=== PATIENT | female | born 1980 | race Caucasian/White ===

== ENCOUNTER 2024-05-13 09:20 | Outpatient (REF) | payer BC, SELFPAY ==
--- NOTE | 2024-05-13 09:00 | PAPFT_PTH ---
PATIENT: Ananya Tanner LOC: [facility] U#:[id number] AGE/SX: 44/F ROOM: RE05/13/[address]: Jovana Andres MD : [id number] BED: DIS: 05/13/2024 SPEC #: [id number] RECD: 05/13/24 12:06 STATUS: BETH RERhoda #: [id number] ELENA: 05/13/24 09:[address]: Jovana Andres DEPT: [facility] Cytology RECD BY: Lisa Vital ENTERED: 05/13/24 12:06 SP TYPE: PAPFT OTHR DR: Unknown,Unknown Tissues: 1 - CX/ENDOCX FOR PAP SMEARS Procedures: PAP THIN PREP/[facility] Screening HPV DNA PROBE Comments: [id number] (HPV 16 & 18/45)
== END 2024-05-13 09:21 | disposition home or self-care (01) ==
LOC: LBN 09:20
PROVIDERS: Visit Provider Obstetrics & Gynecology
DX: Z12.31 Encounter for screening mammogram for malignant neoplasm of breast (principal); Z01.419 Encounter for gynecological examination (general) (routine) without abnormal findings; N95.1 Menopausal and female climacteric states; N92.0 Excessive and frequent menstruation with regular cycle
CPT/HCPCS: 88142; 87624

== ENCOUNTER 2024-06-13 02:23 | Outpatient (CLI) | payer BC, SELFPAY ==
--- NOTE | 2024-06-13 06:30 | DI.MAMMO_ITS ---
Exam(s) MAMMO SCREENING EXAM: MAMMO SCREENING CLINICAL HISTORY: screening,z12.31 TECHNIQUE: Bilateral full field digital CC and MLO mammographic images were obtained with 3D tomosyn thesis and utilizing computer aided detection (CAD). COMPARISON: Available for comparison. FINDINGS: Masses/Architectural Distortion: There is a 1.3 cm nodule seen in the outer right breast on the crani ocaudad view. This has shown interval increase in size compared to the prior examination. It was vi sualized on the exam from 07/23/2021 at which time it measures 7 mm. This may correspond to a nodule seen in the axillary tail region on the MLO view. There are no areas of architectural distortion. Microcalcifications: No suspicious pleomorphic-type are seen. Skin Thickening/Nipple Retraction: None. IMPRESSION: 1. 1.3 cm nodule in the outer right breast on the craniocaudad view. 2. Spot compression views are requested for further evaluation. Limited right breast ultrasound may be indicated at that time. BI-RADS Category 0 - Incomplete: Need additional imaging evaluation Breast Density - Category B - Scattered areas of fibroglandular density Breast density category C or D implies that the patient has dense breast tissue. Dense breast tissue is very common and is not abnormal but dense breast tissue can make it harder to find cancer on a ma mmogram. Also, dense breast tissue may increase their breast cancer risk. This information about the result of the mammogram report was provided to the patient to raise their awareness. Use this report when you speak with the patient about their risks for breast cancer, which includes their family hist ory. At that time, you may recommend for more screening tests (Ultrasound or MRI) as they might be us eful based on their risk. A negative radiographic report should not delay biopsy if a dominant or clinically suspicious mass is present. Up to ten percent of cancers are not identified on mammography. A negative report may reinforce clinical impression. Adenosis and dense breasts may obscure an underlying neoplasm. False positive reports average 6 to 10%. Patient will receive a letter notifying them of these results.
== END 2024-06-13 02:43 ==
PROVIDERS: Visit Provider Obstetrics & Gynecology
DX: Z12.31 Encounter for screening mammogram for malignant neoplasm of breast (principal); R92.8 Other abnormal and inconclusive findings on diagnostic imaging of breast
CPT/HCPCS: 77063; 77067

== ENCOUNTER 2024-06-17 09:56 | Outpatient (CLI) | payer BC, SELFPAY ==
--- NOTE | 2024-06-17 | DI.US_ITS ---
Exam(s) US BREAST RT LIMITED EXAM: US BREAST RT LIMITED of CLINICAL HISTORY: 1.3 cm nodule outer right breast on cc view. TECHNIQUE: Ultrasound right breast performed using standard protocol. Findings: Please see combined mammogram ultrasound report of the same day. BI-RADS Category 3 - 6 month - Probably Benign Finding: Recommend follow-up imaging in 6 months DATA REPOSITORY:
--- NOTE | 2024-06-17 09:40 | DI.MAMMO_ITS ---
Exam(s) MAMMO SCREEN CALL BACK UNI EXAM: MAMMO SCREEN CALL BACK UNI CLINICAL HISTORY: 1.3 cm nodule outer rt breast on CC view. TECHNIQUE: Craniocaudal and mediolateral oblique spot compression digital Mammography views of the r ightbreast with Tomosynthesis and right breast ultrasound. COMPARISON: Exam from 2019 through 2021 and recent exam 13 June 2024 FINDINGS: Mammography/Tomosynthesis: Masses: Area of nodularity in the posterior upper outer quadrant the right breast appears slightly le ss prominent. There is a central fatty hilum, consistent with a lymph node. Architectural Distortion: None seen. Microcalcifictions: No suspicious pleomorphic-type are seen. Skin Thickening/Nipple Retraction: None. Right breast US: Echotexture: Normal appearance of the glandular tissue. Shadowing: No suspicious foci. Cyst: None. Solid lesions: None seen. Ductal dilation: None. IMPRESSION: 1. No evidence of malignancy is noted. 2. Nodule in the posterior upper outer quadrant of the right breast likely right represents an intram ammary lymph node. Six month follow-up right mammogram recommended. 3. The findings were discussed with the patient on the date of the examination. BI-RADS Category 3 - 6 month - Probably Benign Finding: Recommend follow-up mammography in 6 months Breast Density - Category B - Scattered areas of fibroglandular density A negative radiographic report should not delay biopsy if a dominant or clinically suspicious mass is present. Up to ten percent of cancers are not identified on mammography. A negative report may reinforce clinical impression. Adenosis and dense breasts may obscure an underlying neoplasm. False positive reports average 6 to 10%. Patient will receive a letter notifying them of these results.
--- OUTSIDE RECORDS SUMMARY | 2024-06-17 09:59 | XMS_ITS | Encounter Summary ---
Author Organization [facility] [place] [address] Care Team Providers Care Ccu Nurse Name Role Phone Unknown Primary Care Provider Unavailabl e Encounter Details Date Type Department Care Team (Late st Contact Info) Description 06/14/2022 2:10 PM EDT Ancillary Procedure Radiology Library at [facility] [place] [address] Mani Newell MD [facility] [place] [address] Social History Tobacco Use Types Packs/Day Years Used Date Smoking Tobacco: Never Assessed Sex and Gender Information Value Date Recorded Sex Assigned at Not on file Gender Identity Not on file Sexual Orientation Not on file documented as of this encounter Plan of Treatment Not on file documented as of this encounter Procedures Procedure Name Priority Date/Time Associated Diagnosis Comments FILM LIBRARY STORAGE ONLY CT CHEST Routine 06/14/2022 2:07 PM EDT documented in this encounter Results * Film Library- Storage Only CT Chest (06/14/2022 2:07 PM EDT) Narrative [facility] - 06/14/2022 2:07 PM EDT This exam is auto-finalizing. It's purpose is for storage only. Mani Newell MD IMG FILM LIBRARY ORD ERABLES [place], [place] documented in this encounter Visit Diagnoses Not on filedocumented in this encounter Care Teams Ccu Nurse Relationship Specialty Start Date End Date Unknown None PCP - General 08/10/10 12/08/22 documented as of this encounter
--- OUTSIDE RECORDS SUMMARY | 2024-06-17 09:59 | XMS_ITS | Encounter Summary ---
Author Organization [facility] [place] [address] Care Team Providers Care Ground Water Contractor Name Role Phone Page, Brianna Rodriguez APRN Primary Care Provider [phone] Encounter Details Date Type Department Care Team (Latest Contact Info) Description 12/09/2022 10:00 AM EDT Tech [place] [address] Ananya Ty, [place] Acute deep vein thrombosis (DVT) of left lower extremity, unspecified vein; Anticoagulated by anticoagulation treatment; Other acute pulmonary embolism, unspecified whether acute cor pulmonale present Social History Tobacco Use Types Packs/Day Years Used Date Smoking Tobacco: Never Smokeless Tobacco: Never Sex and Gender Information Value Date Recorded Sex Assigned at Not on file Gender Identity Not on file Sexual Orientation Not on file documented as of this encounter Plan of Treatment Not on file documented as of this encounter Procedures Procedure Name Priority Date/Time Associated Diagnosis Comments DUPLEX FOR DVT, LEG, UNILAT Routine 12/09/2022 9:55 AM EDT Acute deep vein thrombosis (DVT) of left lower extremity, unspecified vein Anticoagulated by anticoagulation treatment Other acute pulmonary embolism, unspecified whether acute cor pulmonale present documented in this encounter Results * Duplex for DVT, Leg, Unilat (12/09/2022 9:55 AM EDT) VB Text Report Department: Vascular Surgery Lab Patient: [id number] (ANANYA [facility]NER) CPT: 83014 Referring Physician: ANA BARNES ?? Indications: ?? F/U LLE DVT at OSH with PE. ??? residual LLE DVT. ??Patient being anticoagulated. Findings: LEFT: Patent common femoral vein and popliteal vein with spontaneous, respirophasic Doppler waveforms that respond normally to augmentation maneuvers. The common femoral vein, saphenofemoral junction, femoral vein through the thigh and popliteal vein are fully compressible. Patent posterior tibial and peroneal veins with no evidence of thrombus. Interpretation: LEFT: ??No evidence of lower extremity deep venous thrombosis. Comparison: ??No previous study in our vascular lab database for comparison. Electronically Signed by: KYLIE ROYAL on 2022-12-09 10:43:01 AM [facility] VB Text Report End of Report [facility] 12/09/2022 9:55 AM EDT Ana Barnes MD VASCULAR ORDERABLE S [facility] documented in this encounter Visit Diagnoses Diagnosis Acute deep vein thrombosis (DVT) of left lower extremity, unspecified vein Anticoagulated by anticoagulation treatment Encounter for long-term (current) use of anticoagulants Other acute pulmonary embolism, unspecified whether acute cor pulmonale present documented in this encounter Care Teams Ground Water Contractor Relationship Specialty Start Date End Date Brianna Ferguson, [employer] PROFESSIONAL [address] [place] [address] PCP - General Family Medicine 12/09/22 documented as of this encounter
--- OUTSIDE RECORDS SUMMARY | 2024-06-17 09:59 | XMS_ITS | Encounter Summary ---
Author [facility] [place] [address] Care Team Providers Care Tool [employer] Die Repair Name Role Phone Brianna Ferguson APRN Primary Care Provider [phone] Encounter Details Date Type Department Care Team (Latest Contact Info) Description 12/09/2022 Travel Social History Tobacco Use Types Packs/Day Years Used Date Smoking Tobacco: Never Smokeless Tobacco: Never Sex and Gender Information Value Date Recorded Sex Assigned at Not on file Gender Identity Not on file Sexual Orientation Not on file documented as of this encounter Plan of Treatment Not on file documented as of this encounter Visit Diagnoses Not on filedocumented in this encounter Care Teams [employer] Repair Relationship Specialty Start Date End Date Brianna Ferguson APRN [address] [place] [address] PCP - General Family Medicine 12/09/22 documented as of this encounter
--- OUTSIDE RECORDS SUMMARY | 2024-06-17 09:59 | XMS_ITS | Encounter Summary ---
Author Organization [facility] [place] [address] Care Team Providers Care Hris Developer Name Role Phone Unknown Primary Care Provider Unavailabl e Encounter Details Date Type Department Care Team (Latest Contact Info) Description 11/18/2022 10:55 AM EST - 11/18/2022 11:59 PM EST Hospital Encounter Hematology and Oncology at [facility] [place] [address] Acute deep vein thrombosis (DVT) of left lower extremity, unspecified vein; Anticoagulated by anticoagulation treatment; Other acute pulmonary embolism, unspecified whether acute cor pulmonale present Discharge Disposition: Home Social History Tobacco Use Types Packs/Day Years Used Date Smoking Tobacco: Never Smokeless Tobacco: Never Sex and Gender Information Value Date Recorded Sex Assigned at Not on file Gender Identity Not on file Sexual Orientation Not on file documented as of this encounter Medications at Time of Discharge Medication Sig Dispensed Refills Start Date End Date apixaban (Eliquis) 5 mg Tablet Take 5 mg by mouth 2 times daily. sertraline (Zoloft) 25 mg Tablet Take 25 mg by mouth daily. documented as of this encounter Plan of Treatment Not on file documented as of this encounter Procedures Procedure Name Priority Date/Time Associated Diagnosis Comments TT Routine 11/18/2022 11:09 AM EST Acute deep vein thrombosis (DVT) of left lower extremity, unspecified vein Anticoagulated by anticoagulation treatment Other acute pulmonary embolism, unspecified whether acute cor pulmonale present PTT Routine 11/18/2022 11:09 AM EST Acute deep vein thrombosis (DVT) of left lower extremity, unspecified vein Anticoagulated by anticoagulation treatment Other acute pulmonary embolism, unspecified whether acute cor pulmonale present PT Routine 11/18/2022 11:09 AM EST Acute deep vein thrombosis (DVT) of left lower extremity, unspecified vein Anticoagulated by anticoagulation treatment Other acute pulmonary embolism, unspecified whether acute cor pulmonale present PLAT Routine 11/18/2022 11:09 AM EST Acute deep vein thrombosis (DVT) of left lower extremity, unspecified vein Anticoagulated by anticoagulation treatment Other acute pulmonary embolism, unspecified whether acute cor pulmonale present FIBR Routine 11/18/2022 11:09 AM EST Acute deep vein thrombosis (DVT) of left lower extremity, unspecified vein Anticoagulated by anticoagulation treatment Other acute pulmonary embolism, unspecified whether acute cor pulmonale present HC HOMOCYSTEINE Routine 11/18/2022 11:09 AM EST Acute deep vein thrombosis (DVT) of left lower extremity, unspecified vein Anticoagulated by anticoagulation treatment Other acute pulmonary embolism, unspecified whether acute cor pulmonale present FACTOR 5 MUTATION Routine 11/18/2022 11: 09 AM EST PROTEIN S ACTIVITY Routine 11/18/2022 11 :09 AM EST HC D-DIMER, QUANTITATIVE Routine 11/18/2022 11:09 AM EST Acute deep vein thrombosis (DVT) of left lower extremity, unspecified vein Anticoagulated by anticoagulation treatment Other acute pulmonary embolism, unspecified whether acute cor pulmonale present APC RESISTANCE Routine 11/18/2022 11:09 AM EST PROTHROMBIN GENE MUTATION Routine 11/18/2022 11:09 AM EST BETA-2 GLYCOPROTEIN ANTIBODIES Routine 11/18/2022 11:09 AM EST Acute deep vein thrombosis (DVT) of left lower extremity, unspecified vein Anticoagulated by anticoagulation treatment Other acute pulmonary embolism, unspecified whether acute cor pulmonale present PROTEIN C ACTIVITY Routine 11/18/2022 11 :09 AM EST CARDIOLIPIN ANTIBODY SCREEN Routine 11/18/2022 11:09 AM EST Acute deep vein thrombosis (DVT) of left lower extremity, unspecified vein Anticoagulated by anticoagulation treatment Other acute pulmonary embolism, unspecified whether acute cor pulmonale present ANTITHROMBIN Routine 11/18/2022 11:09 AM EST HOMOCYSTEINE TOTAL, PLASMA Routine 11/18/2022 11:09 AM EST Acute deep vein thrombosis (DVT) of left lower extremity, unspecified vein Anticoagulated by anticoagulation treatment Other acute pulmonary embolism, unspecified whether acute cor pulmonale present THROMBOSIS SCREEN REPORT Routine 11/18/2022 10:57 AM EST documented in this encounter Results * Factor 5 Mut (11/18/2022 11:09 AM EST) [facility] Signature Factor V Leiden Heterozygous [facility] Factor V Leiden Interp RESULT: HETEROZYGOUS POSITIVE for one copy of the c.1601G>A variant (Factor V Leiden) INTERPRETATION: The protein generated from this Factor V variant shows normal procoagulant activity, but has increased resistance to inactivation by activated protein C. The estimated relative risk of developing venous thromboembolic disease is estimated to be 5- to 10-fold for heterozygous carriers of this allele, but risk for thrombosis increases with age and penetrance of a thrombosis phenotype depends on the presence or absence of other concomitant risk factors. Clinical correlation is recommended. METHOD: The Coagulation Factor V gene (F5) variant, c.1601G>A (NM_000130.4) [p.Kui993Gix (NP_000121.2) ([id number]; commonly Factor V Leiden or P7421B)], is interrogated using a TaqMan allelic discrimination assay. Genomic DNA was isolated from the submitted peripheral blood specimen. Real-time PCR was performed to amplify a short region spanning the variant site, and genotyping was performed by allelic discrimination using a mixture of fluorescently labeled probes, one of which is specific for the reference sequence, the other specific for the variant gene. This test was developed and its performance characteristics determined by the [facility] [employer] [facility] at [facility]. It has not been cleared or approved by the FDA. The laboratory is regulated under CLIA as qualified to perform high-complexity testing. This test is used for clinical purposes. It should not be regarded as investigational or for research. [facility] Comment: [VERIFIED DATE]11.22.22 Verified By:Bon Ph.D., Anni [facility]ATE Clinical Neon Glass Bender/Magnet Placer (Electronic Signature) Blood Venous Draw / Unknown 11/18/2022 11:09 AM EST 11/21/2022 8:04 AM EST Narrative Resulting Agency Comment Spec In Lab Ana Barnes MD MOLECULAR ORDERABL ES [facility] [place] [address] * Prothrombin gene mutation (11/18/2022 11:09 AM EST) Prothrombin Mutation Heterozygous [facility] Prothrombin Mutation Interp RESULT: HETEROZYGOUS POSITIVE for the Factor II 60635D>A variant in the 3' untranslated region of the prothrombin gene INTERPRETATION: The Factor II 08159V>A variant ([id number]:g.253 13G>A, [id number]) is associated with elevated prothrombin levels. Heterozygous positive results have been linked with a 2- to 5-fold increased risk for venous thrombosis and increased risk for obstetric complications. 09405E>A heterozygosity has a most a modest effect on recurrence risk after initial treatment of a first VTE, and many studies have shown no increased risk for recurrent venous thromboembolism. The presence or absence of other concomitant risk factors for thrombosis may modify the overall relative risk. Clinical correlation is recommended. METHODS: The region of interest in the Prothrombin gene (04166R>A) is interrogated using a TaqMan allelic discrimination assay. Genomic DNA was isolated from the submitted peripheral blood specimen. Real-time PCR was performed to amplify a short region spanning the variant site, and genotyping was performed by allelic discrimination using a mixture of fluorescently labeled probes, one of which is specific for the reference sequence, the other specific for the variant allele. This test was developed and its performance characteristics determined by the [facility] at [facility]. It has not been cleared or approved by the FDA. The laboratory is regulated under CLIA as qualified to perform high-complexity testing. This test is used for clinical purposes. It should not be regarded as investigational or for research. [facility] Comment: [VERIFIED DATE]11.22.22 Verified By:Bon Ph.D., [facility], [facility] Clinical Neon Glass Bender/Magnet Placer (Electronic Signature) Blood Venous Draw / Unknown 11/18/2022 11:09 AM EST 11/21/2022 8:04 AM EST Narrative Resulting Agency Comment Spec In Lab Ana Barnes MD MOLECULAR ORDERABL ES Performing Organization Address City/[facility]/ZIP Co de Phone Number [facility] [place] [address] * Protein S Activity (11/18/2022 11:09 AM EST) Protein S Act 104 >=64 % activity [facility] Blood Venous Draw / Unknown 11/18/2022 11:09 AM EST 11/18/2022 11:18 AM EST Narrative Resulting Agency Comment Spec In Lab Ana Barnes MD HEMATOLOGY ORDERAB LES Performing Organization Address City/[facility] Co de Phone Number [facility] [place] [address] * Protein C activity (11/18/2022 11:09 AM EST) Protein C Activity 105 >=70 % [facility] Blood Venous Draw / Unknown 11/18/2022 11:09 AM EST 11/18/2022 11:18 AM EST Narrative Resulting Agency Comment Spec In Lab Ana Barnes MD HEMATOLOGY ORDERAB LES Performing Organization Address City/[facility] Co de Phone Number [facility] [place] [address] * Antithrombin (11/18/2022 11:09 AM EST) Antithrombin III Assay 103 >=83 % [facility] Blood Venous Draw / Unknown 11/18/2022 11:09 AM EST 11/18/2022 11:18 AM EST Narrative Resulting Agency Comment Spec In Lab Ana Barnes MD HEMATOLOGY ORDERAB LES Performing Organization Address City/[facility]/ZIP Co de Phone Number [facility] [place] [address] * (ABNORMAL) APC resistance (aka Factor V Leiden Screen) (11/18/2022 11:09 AM EST) Activated Protein C Resistance 1.72(L) >=2.45 [facility] Blood Venous Draw / Unknown 11/18/2022 11:09 AM EST 11/18/2022 11:18 AM EST Narrative Resulting Agency Comment Spec In Lab Ana Barnes MD HEMATOLOGY ORDERAB LES Performing Organization Address [facility] Co de Phone Number [facility] [place] [address] * Beta-2 glycoprotein antibodies (11/18/2022 11:09 AM EST) Beta 2 Glycoprotein, IgG 1.4 <=6.9 unit/mL [facility] Beta 2 Glycoprotein, IgM <2.4 <=6.9 unit/mL [facility] Blood 11/18/2022 11:0 9 AM EST 11/18/2022 12:35 PM EST Narrative Resulting Agency Comment Spec In Lab Ana Barnes MD IMMUNOLOGY ORDERAB LES Performing Organization Address [facility] Co de Phone Number [facility] [place] [address] * Homocysteine Total, Plasma (11/18/2022 11:09 AM EST) Homocystine 9 <=15 mcmol/L [facility] Blood 11/18/2022 11:0 9 AM EST 11/18/2022 11:18 AM EST Narrative Resulting Agency Comment Spec In Lab Ana Barnes MD CHEMISTRY ORDERABL ES Performing Organization Address City/[facility] Co de Phone Number [facility] [place] [address] * Cardiolipin Antibody Screen (11/18/2022 11:09 AM EST) Cardiolipin Antibody IgG 0.9 <=9.9 GPL-U/mL [facility] Cardiolipin Antibody IgM 1.8 <=9.9 MPL-U/mL [facility] Blood 11/18/2022 11:0 9 AM EST 11/18/2022 12:35 PM EST Narrative Resulting Agency Comment Spec In Lab Ana Barnes MD IMMUNOLOGY ORDERAB LES [facility] [place] [address] * Plat (11/18/2022 11:09 AM EST) Platelet 264 145 - 357 x10(3)/mc L [facility] Immature Plt % 4.3 0.0 - 7.4 % [facility] Comment: Limitation of the Immature Platelet Fraction (IPF)-May be less reliable when the platelet count is less than 89c980/uL due to statistical imprecision. The IPF value provides an assessment of the Bone Marrow production status. ??It is useful in differentiating Thrombocytopenia caused by platelet destruction/consumption versus decreased production. It also helps to determine the imminent release of platelets and can be therefore a helpful parameter in Chemotherapy and Bone marrow transplant patients. ELEVATED IPF value: ?? When the bone marrow is in a state of over production such as when increased destruction and consumption are the underlying issue. ?? When the marrow is recovering post chemotherapy or bone marrow transplant. LOW to NORMAL IPF value: ?? When the bone marrow in not responding and is in a decreased state of production. References: [employer] The Clinical Value of the Immature Platelet Fraction (IPF) in Cell Recovery Document Number [id number] 02/2011 [employer] The Role of the Immature Platelet Fraction (IPF) in the Differential Diagnosis of Thrombocytopenia, Document [id number] V001/27/14 P001/29 Blood 11/18/2022 11:0 9 AM EST 11/18/2022 11:18 AM EST Narrative Resulting Agency Comment Spec In Lab Ana Barnes MD HEMATOLOGY ORDERAB LES Performing Organization Address [facility] Co de Phone Number [facility] [place] [address] * TT (11/18/2022 11:09 AM EST) Thrombin Time 15 10 - 17 sec [facility] Comment: A prolongation in the thrombin time (>20 seconds) may be indicative of hypofibrinogenemia or dysfibrinogenemia. The thrombin time will be prolonged, often markedly so, by the presence of heparin or direct thrombin inhibitors (argatroban, bivalirudin, dabigatran) in the specimen. Blood 11/18/2022 11:0 9 AM EST 11/18/2022 11:18 AM EST Narrative Resulting Agency Comment Spec In Lab Ana Barnes MD HEMATOLOGY ORDERAB LES Performing Organization Address [facility] de Phone Number [facility] [place] [address] * FIBR (11/18/2022 11:09 AM EST) Fibrinogen 369 200 - 393 mg/dL [facility] Comment: A fibrinogen level >100 mg/dL is adequate for hemostasis in most patients without underlying bleeding disorders. Blood 11/18/2022 11:0 9 AM EST 11/18/2022 11:18 AM EST Narrative Resulting Agency Comment Spec In Lab Ana Barnes MD HEMATOLOGY ORDERAB LES Performing Organization Address [facility] Co de Phone Number [facility] [place] [address] * PTT (11/18/2022 11:09 AM EST) Partial Thromboplastin Time 35 25 - 37 sec [facility] Comment: The PTT is NOT appropriate for heparin monitoring. Use the Anti-Xa level for heparin monitoring (HEP UFH) or LMWH monitoring (HEP LMW). A PTT less than 37 seconds generally indicates adequate hemostasis. Blood 11/18/2022 11:0 9 AM EST 11/18/2022 11:18 AM EST Narrative Resulting Agency Comment Spec In Lab Ana Barnes MD HEMATOLOGY ORDERAB LES Performing Organization Address City/[facility] Co de Phone Number [facility] [place] [address] * (ABNORMAL) PT (11/18/2022 11:09 AM EST) Prothrombin Time 14.6(H) 9.4 - 12.5 sec [facility] International Normalization Ratio 1.3 [facility] Comment: An INR <2.0 indicates adequate procoagulant activity for hemostasis in most patients without underlying bleeding disorders, though the INR may not adequately reflect hemostatic capacity in patients with liver disease and synthetic impairment. The recommended target INR range for therapeutic anticoagulation is 2.0 ? 3.0 for most applications, though lower and higher ranges may be appropriate depending on clinical circumstances. Blood 11/18/2022 11:0 9 AM EST 11/18/2022 11:18 AM EST Narrative Resulting Agency Comment Spec In Lab Ana Barnes MD HEMATOLOGY ORDERAB LES Performing Organization Address [facility] de Phone Number [facility] [place] [address] * D-Dimer, Quantitative (11/18/2022 11:09 AM EST) D-Dimer 253 0 - 500 FEU ng/ml [facility] Comment: The D-Dimer assay is used to aid in the diagnosis of deep vein thrombosis and pulmonary embolism. A normal D-Dimer result (less than 500 FEU ng/ml) has a negative predictive value of approximately 95% for the exclusion of acute PE and DVT when there is low to moderate pretest probability. To use age adjusted cutoff: Age x 10 ng/ml. Blood 11/18/2022 11:0 9 AM EST 11/18/2022 11:18 AM EST Narrative Resulting Agency Comment Spec In Lab Ana Barnes MD HEMATOLOGY ORDERAB LES Performing Organization Address City/[facility] [place] [place] [address] * Thrombosis Screen Report (11/18/2022 10:57 AM EST) Thrombosis Screen Report [id number] ? Location: The signing pathologist has (i) examined the relevant preparation(s) for the specimen(s) and (ii) rendered or confirmed the diagnosis(es). . ? Thrombosis Screen DIAGNOSIS 1. Activated protein C resistance due to heterozygosity for factor V Leiden (R506Q) gene polymorphism 2. 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 T he factor V Leiden gene mutation (R506Q) is present in the heterozygous form in up to 5% of unselected individuals and is the most common cause of hereditary thrombophilia. ??Heterozygous factor V Leiden is a risk factor for a first episode of venous thromboembolic disease (VTE) and for recurrent loss but does not appear to be a significant risk factor for recurrent VTE or for arterial thrombosis in adults under most circumstances. ??Most individuals with factor V Leiden are asymptomatic; however, the thrombotic risk conferred by factor V Leiden is amplified in the presence of certain other risk factors (e.g., smoking, obesity, contraceptives, ). The prothrombin L17401O gene variant is present in the heterozygous form in up to 2-3% of unselected individuals and is a common cause of hereditary thrombophilia. Like factor V Leiden, heterozygous prothrombin [id number] gene variant is a risk factor for a first episode of venous thromboembolic disease (VTE) and for recurrent loss but does not appear to be a significant risk factor for recurrent VTE or for arterial thrombosis in adults under most circumstances. ??Most individuals with the prothrombin J67984J gene variant are asymptomatic; however, the thrombotic risk conferred by the prothrombin V58043M gene variant is amplified in the presence of certain other acquired risk factors (e.g., smoking, obesity, contraceptives, ). The VTE risk for double heterozygotes for the factor V Leiden gene mutation (R506Q) and the prothrombin M61752A gene variant ??is poorly characterized but may be higher than the risk for individuals with either mutation alone and in one study was estimated at 0.57%/year, compared to the risk for factor V Leiden heterozygotes alone of 0.39%/year (Kasandra et al., Blood coagulation and fibrinolysis. 2001;12:713-720). The risk for VTE in , however, does not appear to be higher for double heterozygotes than for carriers of single mutations (Ximena et al., J. Thromb Haemostasis 2008;6:494-498), and compound heterozygosity does not seem to confer an increased risk for recurrent VTE (Lijfering et al., Circulation 2010;121:4223-0405 ). Electronically signed by: ?Stephanie Kaufman MD Verified: ??11/29/2022 9:45 ?? Pathologist Performed at: ??-[facility] Dept. of Pathology, [place] [address] Apparatus Repair Mechanic: Yo Gonzales MD, FCAP, ??CLIA Certificate: [id number] DISCUSSION See Epic for laboratory values. Apixaban may prolong the PT and/or PTT. PT prolongation is attributed to the anticoagulation. Tests for a lupus anticoagulant (dRVVT and Silica Clotting Time) cannot be performed on this specimen as this patient is currently being treated with a direct oral anticoagulant (Apixaban). Lupus anticoagulant (LA) testing is unreliable in the presence of this class of medications. The tests for anticardiolipin and [id number] antibodies are accurate in the presence of these medications. If . DISCUSSION antiphospholipid syndrome is suspected clinically, suggest separate LA testing after an anticoagulant hiatus of at least 72 hours. Similarly, levels of antithrombin, protein C, and protein S may be overestimated in the presence of rivaroxaban or apixaban. If there is strong suspicion for a deficiency of Protein C or Protein S, suggest repeat testing after discontinuation of the potentially interfering medication. 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 She has a family history of venous thromboembolism including ? maternal grandmother with a history of DVTx3 and mother with history of PE in association with advanced uterine cancer. [facility] 11/18/2022 10:5 7 AM EST Ana Barnes MD PATHOLOGY/CYTOLOGY ORDERABLES [facility] [place] [address] documented in this encounter Visit Diagnoses Diagnosis Acute deep vein thrombosis (DVT) of left lower extremity, unspecified vein Anticoagulated by anticoagulation treatment Encounter for long-term (current) use of anticoagulants Other acute pulmonary embolism, unspecified whether acute cor pulmonale present documented in this encounter Care Teams Hris Developer Relationship Specialty Start Date End Date Unknown None PCP - General 08/10/10 12/08/22 documented as of this encounter
--- OUTSIDE RECORDS SUMMARY | 2024-06-17 09:59 | XMS_ITS | Encounter Summary ---
[place] [address] Care Team Providers Care Seed Expert Name Role Phone Unknown Primary Care Provider Unavailabl e Encounter Details Date Type Department Care Team (Latest Contact Info) Description 11/18/2022 Travel Social History Tobacco Use Types Packs/Day [...] on filedocumented in this encounter Care Teams Seed Expert Relationship Specialty Start Date End Date Unknown None PCP - General 08/10/10 12/08/22 documented as of this encounter
--- OUTSIDE RECORDS SUMMARY | 2024-06-17 09:59 | XMS_ITS | Encounter Summary ---
[place] [address] Care Team Providers Care Dural Mechanic Name Role Phone Unknown Primary Care Provider Unavailabl e Reason for Referral * Consultation (Routine) - Closed Specialty Diagnoses / Procedures Referred By Benitez nguyen Referred To Contact Hematology and Oncology Diagnoses Personal history of PE (pulmonary embolism) Obesity, unspecified classification, unspecified obesity type, unspecified whether serious comorbidity present Family history of pulmonary embolism Brianna Ferguson APRN [address] [place] [address] [facility] [address] [place] [address] Referral ID Status Reason Start Date Expiration Date V isits Requested Visits Authorized [id number] Closed Consult, Test & Treat PCP Updated and/or Approved 08/25/2022 08/25/2023 6 6 Encounter Details Date Type Department Care Team (Latest Contact Info) Description 08/25/2022 Transcribe Orders eD Incoming Referrals [phone] Brianna Ferguson, DANICA [address], [place] [id number] Personal history of PE (pulmonary embolism); Obesity, unspecified classification, unspecified obesity type, unspecified whether serious comorbidity present; Family history of pulmonary embolism Social History Tobacco Use Types Packs/Day Years Used Date Smoking Tobacco: Never Assessed Sex and Gender Information Value Date Recorded Sex Assigned at Not on file Gender Identity Not on file Sexual Orientation Not on file documented as of this encounter Plan of Treatment Scheduled Referrals Name Type Priority Associated Diagnoses Orde r Schedule Referral to Hematology and Oncology Outpatient Referral Routine Personal history of PE (pulmonary embolism) Obesity, unspecified classification, unspecified obesity type, unspecified whether serious comorbidity present Family history of pulmonary embolism Ordered: 08/25/2022 documented as of this encounter Visit Diagnoses Diagnosis Personal history of PE (pulmonary embolism) Personal history of pulmonary embolism Obesity, unspecified classification, unspecified obesity type, unspecified whether serious comorbidity present Family history of pulmonary embolism Family history of other cardiovascular diseases documented in this encounter Care Teams Dural Mechanic Relationship Specialty Start Date End Date Unknown None PCP - General 08/10/10 12/08/22 documented as of this encounter
--- OUTSIDE RECORDS SUMMARY | 2024-06-17 09:59 | XMS_ITS | Encounter Summary ---
Author Organization [facility] Address [facility] [place] [address] Care Team Providers Care Core Maker Helper Name Role Phone Brianna Ferguson APRN Primary Care Provider [phone] Reason for Visit * Reason Comments Follow-up Encounter Details Date Type Department Care Team (Latest Contact Info) Description 12/09/2022 10:30 AM EDT Office Visit Hematology [place] [address] Ana Barnes MD [facility] [address] [place] [address] Acute deep vein thrombosis (DVT) of left lower extremity, unspecified vein; Anticoagulated by anticoagulation treatment; Other acute pulmonary embolism, unspecified whether acute cor pulmonale present; Factor V Leiden, prothrombin gene mutation Social History Tobacco Use Types Packs/Day Years Used Date Smoking Tobacco: Never Smokeless Tobacco: Never Sex and Gender Information Value Date Recorded Sex Assigned at Not on file Gender Identity Not on file Sexual Orientation Not on file documented as of this encounter Progress Notes * Ana Barnes MD - 12/09/2022 10:30 AM EDT THROMBOSIS FOLLOW UP DATE OF VISIT 12/09/2022 Patient Ananya Tanner 1980 PRIMARY CARE PROVIDER Brianna Ferguson APRN REASON FOR FOLLOW UP Review anticoagulation recommendations, thrombophilia screening test results HISTORY OF THE PRESENT ILLNESS Ananya Tanner is a 42 y.o. woman with a left leg DVT/PE, who is seen in follow up. Ananya was well until some time in May when she developed left lower leg pain. She thought it was due to her new boots or a pulled muscle and didn't think much about it at first. Several days later she had trouble weight-bearing due to the pain but had no swelling or redness. About one week into her symptoms she sought medical care at her PCP office and it was suggested that she had a ruptured Velasco cyst. A few days later she noted onset of shortness of breath. She went to work anyway but could not catch her breath. 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 She was given a dose of enoxaparinand attempts to transfer her to a tertiary care center made for consideration for possible thrombolysis. Apparently there were no available beds in any facility in the region (including ) so she was admitted to the ICU in [place] and treated with IV unfractionated heparin. She improved clinically and was discharged on apixaban after a 3 day hospitalization. Apixaban continues to current day. A venous duplex study was done showed a DVT in the left calf involving the popliteal and posterior tibial veins. This is Ananya's first episode of VTE. She can identify no trigger for this VTE event, including no recent injury/trauma, surgery, prolonged immobilization, hospitalization, medical illness, long distance travel. She had essentially asymptomatic COVID-19 in September but no illness temporally related to the VTE. She was taking a combination oral contraception (she's not sure which one) which had been the same one that she had taken for over a year. This has been stopped though and her is contemplating a vasectomy. She's had no complications. Her maternal grandmother had a history of 3 DVTs and her mother had a PE in association with advanced uterine cancer. INTERVAL HISTORY In the office today Ananya reports feeling generally OK with no new issues. She's read her test results on line and is anxious about what they mean. She had a follow up venous duplex study that showed complete recanalization of the previously involved vein segments in the left leg. I've obtained original records from her hospitalization in [place] and will scan into [facility]. PAST MEDICAL HISTORY 1. Venous thromboembolism, as above Left leg DVT (pop/PT)/submassive PE Rx heparin --> apixaban to current day Follow up left leg venous duplex on 12-09-2022 --> resolved 2. Anxiety 3. Hx ruptured ovarian cyst 1994 OPERATIVE PROCEDURES 1. , 2000 2. , 2005 3. Cholecystectomy, 2007 4. Bunionectomy, 2011 OBSTETRIC HISTORY MEDICATIONS Current Outpatient Medications on File Prior to Visit Medication Sig Dispense Refill ??? apixaban (Eliquis) 5 mg Tablet Take 5 mg by mouth 2 times daily. ??? sertraline (Zoloft) 25 mg Tablet Take 25 mg by mouth daily. No current facility-administered medications on file prior to visit. ADVERSE DRUG REACTIONS Allergies as of 12/09/2022 - Review Complete 11/18/2022 Allergen Reaction Noted ??? Imitrex [sumatriptan] 11/18/2022 ??? Tetracyclines Diarrhea 11/18/2022 FAMILY HISTORY Mother at age 60 of complications of uterine cancer. Had PE Father alive, no VTE 1 brother, no VTE Maternal grandmother with DVTs SOCIAL HISTORY Grew up in [place], [place]. 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 Nonsmoker Rare alcohol REVIEW OF SYSTEMS Fevers/chills/sweats No Recent infections No Unexplained weight loss No Headache/lightheadedness/syncope No Sinus pain/pressure No Oral sores/lesions/bleeding No Sore throat/dysphagia No Nosebleeds No Cough/SOB/chest pain/heart racing See HPI Nausea/vomiting/dyspepsia No Abdominal pain No Diarrhea/constipation No Urinary pain, burning, incontinence No Hematuria No Vaginal discharge/bleeding No Skin rashes/ulcers No Back/joint pain/swelling No Leg swelling/pain/redness See HPI Bruising/petechiae/bleeding/melena No Sensory/motor No Polydipsia/polyuria/heat/cold intol No Lumps/bumps/swollen glands No Other Fatigue PHYSICAL EXAMINATION GENERAL: Well-appearing, articulate but somewhat anxious white female. LABORATORY STUDIES Latest Reference Range & Units 11/18/22 11:09 Platelets 145 - 357 x10(3)/mcL 264 Plat Immature % 0.0 - 7.4 % 4.3 PT 9.4 - 12.5 sec 14.6 (H) INR 1.3 PTT 25 - 37 sec 35 Fibrinogen 200 - 393 mg/dL 369 Thrombin Time 10 - 17 sec 15 D-Dimer, Quant 0 - 500 FEU ng/ml 253 APC Resistance >=2.45 1.72 (L) Antithrombin >=83 % 103 Protein C Act >=70 % 105 Protein S Act >=64 % activity 104 Homocyst Tot <=15 mcmol/L 9 B2GPI IgG <=6.9 unit/mL 1.4 B2GPI IgM <=6.9 unit/mL <2.4 Cardiolipin IgG <=9.9 GPL-U/mL 0.9 Cardiolipin IgM <=9.9 MPL-U/mL 1.8 Prothrombin Mutation Heterozygous Factor V Leiden Heterozygous RADIOGRAPHIC STUDIES I have personally reviewed images from the following studies where available: Reviewed above; reports scanned into e[facility]. Left leg venous duplex, 12-09-2022 Findings: ?? LEFT: Patent common femoral vein and popliteal vein with spontaneous, respirophasic Doppler waveforms that respond normally to augmentation maneuvers. The common femoral vein, saphenofemoral junction, femoral vein through the thigh and popliteal vein are fully compressible. Patent posterior tibial and peroneal veins with no evidence of thrombus. ?? Interpretation: ?? LEFT: ??No evidence of lower extremity deep venous thrombosis. ?? IMPRESSION Ananya Tanner is a 42 y.o. woman with an episode of apparently unprovoked DVT/PE who is appropriately anticoagulated with apixaban, and in light of the nature and severity of the VTE event, she clifton candidate for termite helper anticoagulation. 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 PLAN/RECOMMENDATIONS I again reviewed the difference between an unprovoked VTE event and one that may have been precipitated by temporary risk factors (e.g., surgery, trauma, travel, hospitalization, immobilization) and discussed the additive nature of factors such as hereditary or acquired thrombophilia (e.g., factor V Leiden, PT [id number]), ABO blood type (non-O > O), dehydration, obesity, smoking varicose veins, diabetes, cancer, hormone use. I explained that the risk for developing a recurrent VTE is higher when the original event was unprovoked than when it was associated with identifiable risk factors thathave subsequently been eliminated. I explained that current ACCP recommendations (2016) for individuals with a first unprovoked VTE are for 3-6 months of anticoagulation with consideration for continuing indefinitely if the benefit in terms of risk reduction outweighs the risk for complications of long-term anticoagulation. Indefinite anticoagulation would be more strongly recommended in the event of a second VTE episode, especially an unprovoked one. In her case, I have to say that her VTE event was essentially unprovoked, thus the risk for recurrence is up to 15-20% over the two years following discontinuation of anticoagulation. In addition to the unprovoked nature of the event her other clinically relevant risk factor for recurrence at this point is obesity. In light of this, I think her recurrence risk may be high enough and the consequences of recurrence potentially severe enough that consideration for ongoing anticoagulation is in herbest interest at this time. Anticoagulation reduces the risk for VTE recurrence to about 1% per year at the hazard of a major bleeding risk that is also about 1% per year. I conceded that life-threate vick bleeding is risk with anticoagulation but that the risk for this is currently outweighed by her risk for serious thrombosis without anticoagulation. Given that she has tolerated apixaban, once she has completed 6 months of anticoagulation, it is appropriate to lower the dose to 2.5 mg twice daily which is the FDA-approved dose for residential VTE prevention. Though she has double heterozygosity for FVL and PT [id number], I think the 2.5 mg dose is still appropriate. She has a month's supply remaining of the 5 mg dose and I'll defer to her PCP to provide her next prescription for 2.5 mg twice daily. I reviewed the implications of a diagnosis of venous thromboembolism (VTE) in the setting of both heterozygous factor V Leiden and PT [id number]. Specifically, I explained that the risk of sustaining anepisode of VTE is elevated over the general population by about 10-fold (i.e., from ~0.1% annually in the general population to ~1% annually in individuals doubly heterozygous for these gene mutations). While these gene mutations are associated with an increased risk for first VTE, available data suggest that they may NOT confer a significantly increased risk for a recurrent event compared to those without the gene mutation (Ximena et al., J. Thromb Haemostasis 2008;6:494-498; Janell et.al., Circulation 2010;121:6343-1882). I explained the difference between an unprovoked event and one that may have been precipitated by known risk factors and discussed the additive nature of factorssuch as ABO blood type (non-O > O), dehydration, obesity, hormone use, immobility, diabetes, cancer, surgery, trauma. I explained that the risk for developing a recurrent VTE event is higher when the initial event was unprovoked than when the initial event was associated with identifiable risk factors that have subsequently been eliminated, and that this risk is independent of the presence or absence of factor V Leiden and/or PT [id number]. In her case the event was unprovoked thus the presenceof this complex thrombophilia does not change the recommendation for ongoing anticoagulation. Weight loss and exercise will be important to reduce risk for recurrent VTE. I reviewed with her that at her BMI the risk for VTE is increased at least 6-fold over baseline (Kabrhel et al., Obesity 2009;17:2040-46), thus weight loss will therefore be an important component of risk factor modification for her going forward. We then discussed the genetic transmission of factor V Leiden and PT [id number] and the role of familytesting. I voiced the opinion that I would not necessarily recommend wholesale testing of asymptomatic family members given the overall low absolute risk for developing VTE and the possibility for misuse of genetic information by various agencies. Rather, I explained that family members should be counseled about risk factor modification irrespective of the presence or absence of these gene mutations. Once exception may be women in this family in the position of making decisions about hormonal contraceptives, hormone replacement or child-bearing. I encouraged her to discuss the genetic informat ion with family members. I reviewed preventive strategies for DVT and PE including weight loss, maintaining a good activity level and avoiding dehydration. I reminded her that although her risk for a recurrent event is low while continuing anticoagulation it is not zero, and I reviewed the signs and symptoms of DVT and PE and reminded her to seek medical attention expeditiously should they occur. I gave her some written information about factor V Leiden, PT [id number] and VTE prevention and encouraged her to share it with her family members. In summary: ?? Continue apixaban for the residential with periodic review of risk/benefit. ?? Decrease apixaban dose to 2.5 mg twice daily with next refill; defer to DEPORTATION OFFICER Page to provide andcontinue to manage the prescription ?? No further thrombophilia testing at this time ?? Seek medical attention in the event of new VTE symptoms ?? Weight loss to reduce VTE risk Ananya Tanner had the opportunity to ask questions and indicated that all her questions were answered to her satisfaction. While I won't plan to see her back routinely, I'll be happy to see her back at any time in the future as appropriate and would especially welcome the opportunity to provide r ecommendations for anticoagulant management around invasive procedures should the need arise. Ana Barnes MD [facility] documented in this encounter Plan of Treatment Not on file documented as of this encounter Visit Diagnoses Diagnosis Acute deep vein thrombosis (DVT) of left lower extremity, unspecified vein Anticoagulated by anticoagulation treatment Encounter for long-term (current) use of anticoagulants Other acute pulmonary embolism, unspecified whether acute cor pulmonale present Factor V Leiden, prothrombin gene mutation Primary hypercoagulable state documented in this encounter Care Teams Core Maker Helper Relationship Specialty Start Date End Date Brianna Ferguson APRN [address] [place] [address] PCP - General Family Medicine 12/09/22 documented as of this encounter
--- OUTSIDE RECORDS SUMMARY | 2024-06-17 09:59 | XMS_ITS | Continuity of Care Document ---
Author Organization [facility] Address [address] [place] [address] Care Team Providers Care Business Intelligence Developer Name Role Phone Page Brianna MISHRA Primary Care Physician Encounter LTTL_PA FIN NBR [id number] Date(s): 11/21/22 - 11/22/[address] [id number] Encounter Diagnosis Ovarian cyst(Discharge Diagnosis) - 11/22/22 Discharge Disposition: Home f/u Internal Provider Attending Physician: Austin Arellano MD Admitting Physician: Austin Arellano MD Allergies, Adverse Reactions, Alerts Substance Reaction Severity Status tetracycline Moderate Active SUMAtriptan Moderate Active Assessment and Plan Future Appointments Functional Status 11/22/22 Anti-Embolism Device Activity: Removed Anti-Embolism Device Removal Reason: Dis continued Anti-Embolism Site Condition: No complic ations 11/22/22 Activity Status ADL Ambulating in room Ambulation Patient Effort Fair Ambulation Minutes 10 11/21/22 Personal Care Provided Other: hs care of fered, pt declined 11/21/22 Living Environment No Living Environmen t Information Available Lives In Single level home Lives With Child(sal), Spouse Home Barriers None 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, 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, 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, 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, Shopping 11/21/22 Family Member Travel History No recent t ravel Recent Travel History No recent travel Other exposure to Infectious Disease Non e Medications Eliquis 5 mg oral tablet 5 mg = 1 tab, Oral, BID Start Date: 11/21/22 Status: Ordered sertraline 25 mg oral tablet 25 mg = 1 tab, Oral, Daily Start Date: 11/21/22 Status: Ordered Results Laboratory List Name Date Automated Diff 11/22/22 Basic Metabolic Panel (BMP) 11/22/22 CBC w/ Diff 11/22/22 Urinalysis with Micro if Indicated and C ulture if Indicated 11/21/22 SARS-CoV-2 (COVID-19) PCR (GeneXpert) (C OVID 19 (GeneXpert)) 11/21/22 CBC w/ Diff 11/21/22 Comprehensive Metabolic Panel 11/21/22 Lipase Level 11/21/22 Test Serum Qual 11/21/22 Automated Diff 11/21/22 Most recent to oldest [Reference Range]: 1 2 WBC [4.8-10.8 K/mcL] 5.2 K/mcL (11/22/22 6:26 AM) 6.1 K/mcL (11/21/22 8:46 AM) RBC [4.20-5.40 Million/mcL] 3.81 Million /mcL *LOW* (11/22/22 6:26 AM) 4.55 Million/mcL (11/21/22 8:46 AM) Neutro Auto [42.2-75.2 %] 42.7 % (11/22/22 6:26 AM) 61.9 % (11/21/22 8:46 AM) Lymph Auto [20.5-51.1 %] 43.6 % (11/22/22 6:26 AM) 27.1 % (11/21/22 8:46 AM) [place] Auto [1.7-9.3 %] 9.5 % *HI* (11/22/22 6:26 AM) 8.5 % (11/21/22 8:46 AM) Basophil Auto [0.0-0.8 %] 1.3 % *HI* (11/22/22 6:26 AM) 0.8 % (11/21/22 8:46 AM) BUN [8-26 mg/dL] 9 mg/dL (11/22/22 6:26 AM) 10 mg/dL (11/21/22 8:46 AM) UA Color [Yellow] Yellow (11/21/22 10:13 AM) Glucose Level [74-106 mg/dL] 86 mg/dL (11/22/22 6:26 AM) 95 mg/dL (11/21/22 8:46 AM) Potassium Level [3.5-5.1 mmol/L] 3.8 mmo l/L (11/22/22 6:26 AM) 3.9 mmol/L (11/21/22 8:46 AM) Baso Absolute [0.0-0.2 K/mcL] 0.1 K/mcL (11/22/22 6:26 AM) 0.0 K/mcL (11/21/22 8:46 AM) MCV [81.0-99.0 fL] 90.8 fL (11/22/22:26 AM) 91.4 fL (11/21/22 8:46 AM) UA Urobilinogen [0.2] 0.2 (11/21/22 10:13 AM) UA Bili [Negative] Negative (11/21/22 10:13 AM) UA Ketones [Negative] Negative (11/21/22 10:13 AM) AST [15-41 IntlUnit/L] 23 IntlUnit/L (11/21/22 8:46 AM) ALT [14-54 IntlUnit/L] 26 IntlUnit/L (11/21/22 8:46 AM) MCHC [32.0-36.0 g/dL] 32.9 g/dL (11/22/22:26 AM) 32.7 g/dL (11/21/22 8:46 AM) Osmolality [275-295 mOsm/kg] 264 mOsm/kg *LOW* (11/22/22:26 AM) 269 mOsm/kg *LOW* (11/21/22 8:46 AM) Sodium Level [134-143 mmol/L] 133 mmol/L *LOW* (11/22/22: AM) 135 mmol/L (11/21/22 8:46 AM) UA Leuk Est [Negative] Negative (11/21/22 10:13 AM) Lymph Absolute [1.2-3.4 K/mcL] 2.3 K/mcL (11/22/22 6:26 AM) 1.7 K/mcL (11/21/22 8:46 AM) UA Nitrite [Negative] Negative (11/21/22 10:13 AM) UA Glucose [Negative] Negative (11/21/22 10:13 AM) Hct [37.0-47.0 %] 34.6 % *LOW* (11/22/22:26 AM) 41.6 % (11/21/22 8:46 AM) Lipase Level [18-51 unit/L] 34 unit/L (11/21/22 8:46 AM) Calcium Level [8.9-10.3 mg/dL] 7.9 mg/dL *LOW* (11/22/22 6:26 AM) 8.9 mg/dL (11/21/22 8:46 AM) [place] Absolute [0.1-0.6 K/mcL] 0.5 K/mcL (11/22/22:26 AM) 0.5 K/mcL (11/21/22 8:46 AM) Albumin Level [3.5-5.0 g/dL] 3.6 g/dL (11/21/22 8:46 AM) Protein Total [6.5-8.1 g/dL] 7.3 g/dL (11/21/22 8:46 AM) UA Protein [Negative] Negative (11/21/22 10:13 AM) MCH [27.0-31.0 pg] 29.9 pg (11/22/22:26 AM) 29.9 pg (11/21/22 8:46 AM) Neutro Absolute [1.4-6.5 K/mcL] 2.2 K/mc L (11/22/22 6:26 AM) 3.8 K/mcL (11/21/22 8:46 AM) Bilirubin Total [0.2-1.2 mg/dL] 0.5 mg/d L (11/21/22 8:46 AM) Hgb [12.0-16.0 g/dL] 11.4 g/dL 1 *LOW* (11/22/22:26 AM) 13.6 g/dL (11/21/22 8:46 AM) Alk Phos [38-130 IntlUnit/L] 46 IntlUnit /L (11/21/22 8:46 AM) UA Blood [Negative] Negative (11/21/22 10:13 AM) MPV [7.4-10.4 fL] 10.6 fL *HI* (11/22/22 6:26 AM) 10.6 fL *HI* (11/21/22 8:46 AM) UA Spec Grav 1.010 *NA* (11/21/22 10:13 AM) Platelets [130-400 K/mcL] 198 K/mcL (11/22/22 6:26 AM) 245 K/mcL (11/21/22 8:46 AM) CO2 [22-32 mmol/L] 24 mmol/L (11/22/22 6:26 AM) 27 mmol/L (11/21/22 8:46 AM) Eos Absolute [0.0-0.2 K/mcL] 0.1 K/mcL (11/22/22 6:26 AM) 0.1 K/mcL (11/21/22 8:46 AM) UA pH 7.00 *NA* (11/21/22 10:13 AM) UA Appear [Clear] Clear (11/21/22 10:13 AM) Chloride Level [98-111 mmol/L] 104 mmol/ L (11/22/22 6:26 AM) 100 mmol/L (11/21/22 8:46 AM) RDW-CV [11.5-14.5 %] 13.2 % (11/22/22 6:26 AM) 13.2 % (11/21/22 8:46 AM) A/G Ratio 1.0 *NA* (11/21/22 8:46 AM) BUN/Creat Ratio [8.0-20.0] 13.4 (11/22/22 6:26 AM) 22.2 *HI* (11/21/22 8:46 AM) Globulin 3.7 *NA* (11/21/22 8:46 AM) hCG Qual Serum [Negative] Negative (11/21/22 8:46 AM) Imm Gran Absolute 0.01 *NA* (11/22/22 6:26 AM) 0.01 *NA* (11/21/22 8:46 AM) Imm Gran Auto [0.0-0.5 %] 0.2 % (11/22/22 6:26 AM) 0.2 % (11/21/22 8:46 AM) SARS-CoV-2 (COVID-19) PCR (G eneXpert) [Negative] Negative (11/21/22 9:30 AM) Creatinine Level [0.44-1.00 mg/dL] 0.67 mg/dL (11/22/22 6:26 AM) 0.45 mg/dL (11/21/22 8:46 AM) Employed in healthcare? No *NA* (11/21/22 9:30 AM) Symptomatic as defined by CDC? No *NA* (11/21/22 9:30 AM) Hospitalized due to COVID-19? No *NA* (11/21/22 9:30 AM) In ICU? No *NA* (11/21/22 9:30 AM) Group care resident? No *NA* (11/21/22 9:30 AM) status? Not *NA* (11/21/22 9:30 AM) Anion Gap [3.0-12.0] 5.0 (11/22/22 6:26 AM) 8.0 (11/21/22 8:46 AM) Eos, Auto [0.00-3.00 %] 2.70 % (11/22/22 6:26 AM) 1.50 % (11/21/22 8:46 AM) eGFR CKD-EPI [>=60 mL/min/1.73 m2] 111 m L/min/1.73 m2 (11/22/22 6:26 AM) 122 mL/min/1.73 m2 (11/21/22 8:46 AM) 1Result Comment: Results verified by repeat analysis. Radiology Reports * Exam Date Time Procedure Performing Provider Status 11/22/22 1:[address] Abdomen and Pelvis w/ Contrast Urszula Sanchez (Verified) Notes: (CT Abdomen and Pelvis w/ Contrast) Reason For Exam: RLQ abd pain. Possible appendicitis, but not seen on non contrast scan yesterday. Please scan with PO and IV contrast CT Abdomen and Pelvis w/ Contrast EXAM DESCRIPTION: CT Abdomen and Pelvis w/ Contrast 11/22/2022 INDICATION: RLQ ABD PAIN. POSSIBLE APPENDICITIS, BUT NOT SEEN ON NON CONTRAST SCAN YESTERDAY. PLEASE SCAN WITH PO AND IV CONTRAST TECHNIQUE: All CT scans at this facility use at least one of these dose optimization techniques: Automated exposure control; mA and/or kV adjustment per patient size (includes targeted exams where dose is matched to clinical indication); or iterative reconstruction. Technique: Axial CT images of the abdomen/pelvis with IV contrast administration 100 cc of Isovue 370 contrast was utilized. Oral contrast was also administered COMPARISON: CT abdomen/pelvis without contrast from 11/21/2022 FINDINGS: No focal hepatic lesion. Normal enhancement of the main hepatic veins and main portal vein. Normal spleen size without focal mass Status post cholecystectomy Adrenal glands and pancreas appear within normal limits. No focal renal mass, hydronephrosis or perinephric fluid collection on either side Normal caliber abdominal aorta. No retroperitoneal adenopathy in the abdomen or pelvis. Right ovarian cyst measuring approximately 4.3 x 3.1 cm, slightly larger since recent study. No bowel dilatation to suggest obstruction or ileus. Oral contrast extends into the appendix which is normal in caliber. Small amount of fluid adjacent to the appendix which appears less extensive since recent study. Acute appendicitis is considered unlikely based on this study. No free intraperitoneal air. Small amount of free fluid in the pelvis with no significant ascites. Minimal subsegmental atelectatic changes in both lung bases. No suspicious regional osseous lesions. Grade 1 spondylolisthesis at L5-S1 with bilateral L5 pars defects as described previously. Spondylotic changes in the visualized spinal axis. IMPRESSION: Nonobstructive bowel pattern. The appendix is normal in caliber with oral contrast extending into the appendiceal lumen. Small amount of fluid adjacent to the appendix which appears improved since recent study. Acute appendicitis is felt to be unlikely based on this study. Mild free fluid in the pelvis. No free air Right ovarian cyst measuring approximately 4.3 x 3.1 cm, slightly larger since recent study. JOB #: [id number] Final Signed by: Eulalio Moffett MD Signed (Electronic Signature): 11/22/2022 1:58 pm * Exam Date Time Procedure Performing Provider Status 11/21/22 8:[address] Abdomen and Pelvis w/o Contrast Rojas brittni, Steffany; Hay (Verified) Notes: (CT Abdomen and Pelvis w/o Contrast) Reason For Exam: Abdominal Pain CT Abdomen and Pelvis w/o Contrast EXAM DESCRIPTION: CT Abdomen and Pelvis w/o Contrast 11/21/2022 INDICATION: ABDOMINAL PAIN TECHNIQUE: All CT scans at this facility use at least one of these dose optimization techniques: Automated exposure control; mA and/or kV adjustment per patient size (includes targeted exams where dose is matched to clinical indication); or iterative reconstruction. Technique: Axial CT images of the abdomen/pelvis without IV contrast administration COMPARISON: None FINDINGS: Tiny low-attenuation lesion in the lateral aspect of the right hepatic lobe measuring a few mm in size, too small to characterize. Liver otherwise demonstrates a normal unenhanced CT appearance Normal spleen size Status post cholecystectomy Adrenal glands and pancreas demonstrate a normal unenhanced CT appearance. No renal calculi on either side. No hydronephrosis or hydroureter on either side with no evidence of obstructing urinary tract calculus. Ovoid fluid attenuation lesion in the right adnexa most consistent with right ovarian cyst measuring approximately 3 x 2.8 cm. Normal caliber abdominal aorta. No retroperitoneal adenopathy in the abdomen or pelvis. Inflammatory stranding and fluid accumulation in the right lower quadrant extending adjacent to the cecum. The appendix is not identified with certainty. Findings are suspicious for acute appendicitis. No focal fluid collection in this region to suggest abscess at this time. No free intraperitoneal air. No bowel dilatation to suggest obstruction or ileus. Minimal subsegmental atelectasis or scarring in the lingula. Visualized lung bases are otherwise clear. No suspicious regional osseous lesions. Grade 1 spondylolisthesis at L5-S1 with bilateral L5 pars defects. Spondylotic changes in the visualized spinal axis. IMPRESSION: Findings suspicious for acute appendicitis as described above. No evidence of abscess or free air. Nonobstructive bowel pattern. Right ovarian cyst measuring 3 x 2.8 cm. Results telephoned to ER physician at the time of interpretation. JOB #: [id number] Final Signed by: Eulalio Moffett MD Signed (Electronic Signature): 11/21/2022 9:02 am Vital Signs Most recent to oldest [Reference Range]: 1 2 3 Temperature Temporal Artery [36-38 Deg C] 36.8 Deg C (11/22/22 3:27 PM) 36.3 Deg C (11/22/22 11:08 AM) 36.4 Deg C (11/22/22 7:51 AM) Peripheral Pulse Rate [60-100 bpm] 68 bpm (11/22/22 3:27 PM) 73 bpm (11/22/22 11:08 AM) 74 bpm (11/22/22 7:51 AM) Respiratory Rate [12-24 br/min] 18 br/min (11/22/22 3:27 PM) 18 br/min (11/22/22 11:08 AM) 18 br/min (11/22/22 7:51 AM) Blood Pressure [90-140/60-90 mmHg] 122/80mmHg (11/22/22 3:27 PM) 119/75mmHg (11/22/22 11:08 AM) 108/60mmHg (11/22/22 7:51 AM) Mean Arterial Pressure Cuff 92 mmHg (11/21/22 10:00 AM) 92 mmHg (11/21/22 9:45 AM) 99 mmHg (11/21/22 9:30 AM) Weight Dosing 95.00 kg (11/21/22 8:47 AM) Weight Estimated 95.00 kg (11/21/22 8:01 AM) Height/Length Dosing 152.000 cm (11/21/22 8:47 AM) Height/Length Estimated 152.000 cm (11/21/22 8:01 AM) Social History Social History Type Response Tobacco Never tobacco user T obacco Use:. Sex Hospital Discharge Instructions Patient Education 11/22/2022 15:05:37 Ovarian Cyst Ovarian Cyst An ovarian cyst is a fluid-filled sac that forms on an ovary. The ovaries are small organs that produce eggs in women. Various types of cysts can form on the ovaries. Some may cause symptoms and require treatment. Most ovarian cysts go away on their own, are not cancerous (are benign), and do not cause problems. What are the causes? Ovarian cysts may be caused by: ??? Ovarian hyperstimulation syndrome. This is a condition that can develop from taking fertility medicines. It causes multiple large ovarian cysts to form. ??? Polycystic ovarian syndrome (PCOS). This is a common hormonal disorder that can cause ovarian cysts to form, and can cause problems with your period or fertility. ??? The normal menstrual cycle. What increases the risk? The following factors may make you more likely to develop this condition: ??? Being overweight or obese. ??? Taking fertility medicines. ??? Taking certain forms of hormonal control. ??? Smoking. What are the signs or symptoms? Many ovarian cysts do not cause symptoms. If symptoms are present, they may include: ??? Pelvic pain or pressure. ??? Pain in the lower abdomen. ??? Pain during sex. ??? Abdominal swelling. ??? Abnormal menstrual periods. ??? Increasing pain with menstrual periods. How is this diagnosed? These cysts are commonly found during a routine pelvic exam. You may have tests to find out more about the cyst, such as: ??? Ultrasound. ??? CT scan. ??? MRI. ??? Blood tests. How is this treated? Many ovarian cysts go away on their own without treatment. Your health care provider may want to check your cyst regularly for 2???3 months to see if it changes. If you are in menopause, it is especially important to have your cyst monitored closely because menopausal women have a higher rate of ovarian cancer. When treatment is needed, it may include: ??? Medicines to help relieve pain. ??? A procedure to drain the cyst (aspiration). ??? Surgery to remove the whole cyst (cystectomy). ??? Hormone treatment or control pills. These methods are sometimes used to help keep cysts from coming back. ??? Surgery to remove the ovary (oophorectomy). Follow these instructions at home: ??? Take [id number] and prescription medicines only as told by your health care provider. ??? Ask your health care provider if any medicine prescribed to you requires you to avoid driving or using machinery. ??? Get regular pelvic exams and Pap tests as often as told by your health care provider. ??? Return to your normal activities as told by your health care provider. Ask your health care provider what activities are safe for you. ??? Do not use any products that contain nicotine or tobacco, such as cigarettes, e-cigarettes, andchewing tobacco. If you need help quitting, ask your health care provider. ??? Keep all follow-up visits. This is important. Contact a health care provider if: ??? Your periods are late, irregular, painful, or they stop. ??? You have pelvic pain that does not go away. ??? You have pressure on your bladder or trouble emptying your bladder completely. ??? You have any of the following: ??? A feeling of fullness. ??? You are gaining weight or losing weight without changing your exercise and eating habits. ??? Pain, swelling, or bloating in the abdomen. ??? Loss of appetite. ??? Pain and pressure in your back and pelvis. ??? You think you may be . Get help right away if: ??? You have abdominal or pelvic pain that is severe or gets worse. ??? You cannot eat or drink without vomiting. ??? You suddenly develop a fever or chills. ??? Your menstrual period is much heavier than usual. Summary ??? An ovarian cyst is a fluid-filled sac that forms on an ovary. ??? Some ovarian cysts may cause symptoms and require treatment. ??? These cysts are commonly found during a routine pelvic exam. ??? Many ovarian cysts go away on their own without treatment. This information is not intended to replace advice given to you by your health care provider. Make sure you discuss any questions you have with your health care provider. Document Revised: 02/11/2021 Document Reviewed: 02/11/2021 Elsevier Patient Education ?? 2021 [employer] 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 The following includes patient education materials and information regarding your injury/illness. After you leave the hospital, you may get your health information including your test results, physician notes and discharge information by accessing your Patient Portal. Your Next Steps Instructions From Your Care Team Resume your usual??Eliquis??dose this evening. ??Resume usual activities. ??Advance diet to regulardiet as tolerated.?? Recommend??considering probiotics viewed having issues with constipation or diarrhea following??your short course of antibiotics.?? Follow-up with your PCP and/or filling hauler weaving asneeded for any ongoing symptoms.?? No follow-up with general surgery as indicated. Discharge Orders Discharge Diet Instruction, Regular home diet Discharge Disposition, 11/22/22 16:04:00 EST, Home Independently Scheduled Future Appointments 2022 8:00 AM EDT ?? Follow Up Appointments Follow Up with??Letha Ren APRN When:??Within 1 month, only if needed Why: Follow-up with your ROUGH AND TRUING MACHINE OPERATOR as needed Where: [address] [place] [address] Follow Up with??Page Brianna MISHRA When:??Within 1 month Where: [address] [place] [address]- Medications What How Much When Instructions Next Dose Changed sertraline (sertraline 25 mg oral tablet) 1 tab Oral (given by mouth) Every day Unchanged apixaban (Eliquis 5 mg oral tablet) 1 tab Oral (given by mouth) 2 times a day Your Summary Your Care Team Admitting Physician - Austin Arellano MD Attending Physician - Austin Arellano MD Primary Care Physician - Brianna Ferguson APRN Your Diagnosis Ovarian cyst Tests Performed/Pending Automated Diff BMP CBC w/ Diff Comprehensive Metabolic Panel COVID 19 (GeneXpert) Lipase Level Test Serum Qual Urinalysis with Micro if Indicated and Culture if Indicated CT Abdomen and Pelvis w/ Contrast CT Abdomen and Pelvis w/o Contrast Discharge Vitals Temperature??(Temporal Artery) 98.2 ??F (36.8 ??C) Heart Rate??(Peripheral) 68 Respiratory Rate?? 18 Blood Pressure?? 122/80?? Allergies SUMAtriptan tetracycline Education Materials Ovarian Cyst An ovarian cyst is a fluid-filled sac that forms on an ovary. The ovaries are small organs that produce eggs in women. Various types of cysts can form on the ovaries. Some may cause symptoms and require treatment. Most ovarian cysts go away on their own, are not cancerous (are benign), and do not cause problems. What are the causes? Ovarian cysts may be caused by: ? Ovarian hyperstimulation syndrome. This is a condition that can develop from taking fertility medicines. It causes multiple large ovarian cysts to form. ? Polycystic ovarian syndrome (PCOS). This is a common hormonal disorder that can cause ovarian cyststo form, and can cause problems with your period or fertility. ? The normal menstrual cycle. What increases the risk? The following factors may make you more likely to develop this condition: ? Being overweight or obese. ? Taking fertility medicines. ? Taking certain forms of hormonal control. ? Smoking. What are the signs or symptoms? Many ovarian cysts do not cause symptoms. If symptoms are present, they may include: ? Pelvic pain or pressure. ? Pain in the lower abdomen. ? Pain during sex. ? Abdominal swelling. ? Abnormal menstrual periods. ? Increasing pain with menstrual periods. How is this diagnosed? These cysts are commonly found during a routine pelvic exam. You may have tests to find out more about the cyst, such as: ? Ultrasound. ? CT scan. ? MRI. ? Blood tests. How is this treated? Many ovarian cysts go away on their own without treatment. Your health care provider may want to check your cyst regularly for 2???3 months to see if it changes. If you are in menopause, it is especially important to have your cyst monitored closely because menopausal women have a higher rate of ovarian cancer. When treatment is needed, it may include: ? Medicines to help relieve pain. ? A procedure to drain the cyst (aspiration). ? Surgery to remove the whole cyst (cystectomy). ? Hormone treatment or control pills. These methods are sometimes used to help keep cysts from coming back. ? Surgery to remove the ovary (oophorectomy). Follow these instructions at home: ? Take [id number]-efzgncl and prescription medicines only as told by your health care provider. ? Ask your health care provider if any medicine prescribed to you requires you to avoid driving or using machinery. ? Get regular pelvic exams and Pap tests as often as told by your health care provider. ? Return to your normal activities as told by your health care provider. Ask your health care provider what activities are safe for you. ? Do not use any products that contain nicotine or tobacco, such as cigarettes, e- cigarettes, and chewing tobacco. If you need help quitting, ask your health care provider. ? Keep all follow-up visits. This is important. Contact a health care provider if: ? Your periods are late, irregular, painful, or they stop. ? You have pelvic pain that does not go away. ? You have pressure on your bladder or trouble emptying your bladder completely. ? You have any of the following: ? A feeling of fullness. ? You are gaining weight or losing weight without changing your exercise and eating habits. ? Pain, swelling, or bloating in the abdomen. ? Loss of appetite. ? Pain and pressure in your back and pelvis. ? You think you may be . Get help right away if: ? You have abdominal or pelvic pain that is severe or gets worse. ? You cannot eat or drink without vomiting. ? You suddenly develop a fever or chills. ? Your menstrual period is much heavier than usual. Summary ? An ovarian cyst is a fluid-filled sac that forms on an ovary. ? Some ovarian cysts may cause symptoms and require treatment. ? These cysts are commonly found during a routine pelvic exam. ? Many ovarian cysts go away on their own without treatment. This information is not intended to replace advice given to you by your health care provider. Make sure you discuss any questions you have with your health care provider. Document Revised: 02/11/2021 Document Reviewed: 02/11/2021 [employer] Patient Education ?? 2021 [employer]. Patient Name:NADER TANNER I have received this information and my questions have been answered. 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 The following includes patient education materials and information regarding your injury/illness. After you leave the hospital, you may get your health information including your test results, physician notes and discharge information by accessing your Patient Portal. Your Next Steps Instructions From Your Care Team Resume your usual??Eliquis??dose this evening. ??Resume usual activities. ??Advance diet to regulardiet as tolerated.?? Recommend??considering probiotics viewed having issues with constipation or diarrhea following??your short course of antibiotics.?? Follow-up with your PCP and/or filling hauler weaving asneeded for any ongoing symptoms.?? No follow-up with general surgery as indicated. Discharge Orders Discharge Diet Instruction, Regular home diet Discharge Disposition, 11/22/22 16:04:00 EST, Home Independently Scheduled Future Appointments 2022 8:00 AM EDT ?? 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 Where: [address] [place] [address] Follow Up with??Brianna Ferguson APRN When:??Within 1 month Where: [address] [place] [address]- Medications What How Much When Instructions Next Dose Changed sertraline (sertraline 25 mg oral tablet) 1 tab Oral (given by mouth) Every day Unchanged apixaban (Eliquis 5 mg oral tablet) 1 tab Oral (given by mouth) 2 times a day Your Summary Your Care Team Admitting Physician - Austin Arellano MD Attending Physician - Austin Arellano MD Primary Care Physician - Brianna Ferguson APRN Your Diagnosis Ovarian cyst Tests Performed/Pending Automated Diff BMP CBC w/ Diff Comprehensive Metabolic Panel COVID 19 (GeneXpert) Lipase Level Test Serum Qual Urinalysis with Micro if Indicated and Culture if Indicated CT Abdomen and Pelvis w/ Contrast CT Abdomen and Pelvis w/o Contrast Discharge Vitals Temperature??(Temporal Artery) 98.2 ??F (36.8 ??C) Heart Rate??(Peripheral) 68 Respiratory Rate?? 18 Blood Pressure?? 122/80?? Allergies SUMAtriptan tetracycline Education Materials Ovarian Cyst An ovarian cyst is a fluid-filled sac that forms on an ovary. The ovaries are small organs that produce eggs in women. Various types of cysts can form on the ovaries. Some may cause symptoms and require treatment. Most ovarian cysts go away on their own, are not cancerous (are benign), and do not cause problems. What are the causes? Ovarian cysts may be caused by: ? Ovarian hyperstimulation syndrome. This is a condition that can develop from taking fertility medicines. It causes multiple large ovarian cysts to form. ? Polycystic ovarian syndrome (PCOS). This is a common hormonal disorder that can cause ovarian cyststo form, and can cause problems with your period or fertility. ? The normal menstrual cycle. What increases the risk? The following factors may make you more likely to develop this condition: ? Being overweight or obese. ? Taking fertility medicines. ? Taking certain forms of hormonal control. ? Smoking. What are the signs or symptoms? Many ovarian cysts do not cause symptoms. If symptoms are present, they may include: ? Pelvic pain or pressure. ? Pain in the lower abdomen. ? Pain during sex. ? Abdominal swelling. ? Abnormal menstrual periods. ? Increasing pain with menstrual periods. How is this diagnosed? These cysts are commonly found during a routine pelvic exam. You may have tests to find out more about the cyst, such as: ? Ultrasound. ? CT scan. ? MRI. ? Blood tests. How is this treated? Many ovarian cysts go away on their own without treatment. Your health care provider may want to check your cyst regularly for 2???3 months to see if it changes. If you are in menopause, it is especially important to have your cyst monitored closely because menopausal women have a higher rate of ovarian cancer. When treatment is needed, it may include: ? Medicines to help relieve pain. ? A procedure to drain the cyst (aspiration). ? Surgery to remove the whole cyst (cystectomy). ? Hormone treatment or control pills. These methods are sometimes used to help keep cysts from coming back. ? Surgery to remove the ovary (oophorectomy). Follow these instructions at home: ? Take [id number] and prescription medicines only as told by your health care provider. ? Ask your health care provider if any medicine prescribed to you requires you to avoid driving or using machinery. ? Get regular pelvic exams and Pap tests as often as told by your health care provider. ? Return to your normal activities as told by your health care provider. Ask your health care provider what activities are safe for you. ? Do not use any products that contain nicotine or tobacco, such as cigarettes, e- cigarettes, and chewing tobacco. If you need help quitting, ask your health care provider. ? Keep all follow-up visits. This is important. Contact a health care provider if: ? Your periods are late, irregular, painful, or they stop. ? You have pelvic pain that does not go away. ? You have pressure on your bladder or trouble emptying your bladder completely. ? You have any of the following: ? A feeling of fullness. ? You are gaining weight or losing weight without changing your exercise and eating habits. ? Pain, swelling, or bloating in the abdomen. ? Loss of appetite. ? Pain and pressure in your back and pelvis. ? You think you may be . Get help right away if: ? You have abdominal or pelvic pain that is severe or gets worse. ? You cannot eat or drink without vomiting. ? You suddenly develop a fever or chills. ? Your menstrual period is much heavier than usual. Summary ? An ovarian cyst is a fluid-filled sac that forms on an ovary. ? Some ovarian cysts may cause symptoms and require treatment. ? These cysts are commonly found during a routine pelvic exam. ? Many ovarian cysts go away on their own without treatment. This information is not intended to replace advice given to you by your health care provider. Make sure you discuss any questions you have with your health care provider. Document Revised: 02/11/2021 Document Reviewed: 02/11/2021 [employer] Patient Education ?? 2021 [employer] Patient Name:NADER TANNER I have received this information and my questions have been answered. 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on current anticoagulation??status post cholecystectomy??presents emergency department with right lower quadrant abdominal pain. ??She states she woke this morning and was eating shredded wheat??at approximately 6:30 AM.?? She was struck with pain??in the right lower quadrant region directly over McBurney's point??associated with nausea. ??This prompted her to come to the emergency department for evaluation. Review of Systems: CONSTITUTIONAL: _No weight loss, fever, chills, weakness or fatigue SKIN: _No rash, no itching, no jaundice EYES: _No visual loss, blurred vision, double vision or scleral icterus ENT: _No ear pain; patent nares without bleeding or congestion; no sore throat CARDIOLOGY: _No chest pain, No edema, No palpitations PULMONOLOGY: _No pleuritic chest pain, No [id number]-[id number], No cough, No hemoptysis ABDOMEN:_(+)ve nausea, no vomiting,??(+)ve RLQ??abdominal pain, no melena, no hematochezia :_no dysuria, no urinary frequency, no urinary urgency, no vaginal bleeding, no vaginal discharge NEURO:_No focal neurological deficit, no headache, no dizziness ?? REST OF REVIEW OF SYSTEMS IS NEGATIVE PERTAINS TO CHIEF COMPLAINT Physical Exam GENERAL: This is an obese very friendly middle-aged female??with??RLQ discomfort and??no cardiopulmonary distress. SKIN: Warm and dry. No rash. HEENT: Normocephalic, atraumatic. ??PERRLA, EOMI, no conjunctival injection, no scleral icterus. ??TMs not examined. ??Nares are without congestion or rhinorrhea. ??No posterior pharyngeal erythema or tonsillar exudate. ??Dentition grossly intact. ??Mucous membranes are moist. NECK: Supple. No midline tenderness. No JVD. No thyromegaly. Dynamic ROM against resistance intact. HEART: Regular rate and rhythm. ??S1 and S2. No murmur. LUNGS: Clear to auscultation bilaterally. ??No respiratory distress. ABDOMEN: Non-distended, McBurney's Point tenderness??with guarding; No??rebound or rigidity. ??Begum sign negative s/p cholecystectomy. ??No McBurney's point tenderness. ??Psoas negative. Obturator negative. ??(+)ve Rovsing sign.?? (+)ve heel strike testing. BACK: No midline TLS spine tenderness. ??No CVAT. ??No SI tenderness. EXTREMITIES: No unilateral leg swelling or posterior calf tenderness. No edema. NEUROLOGIC: GCS 15. CN III-XII intact without acute focal neurological deficit. VASCULAR: Radial 2+ bilaterally. Medical Decision Making: Right lower quadrant McBurney's point tenderness with positive Rovsing sign, and positive heel strike testing.?? Suspect??appendix pathology. ??Will obtain screening laboratory work-up, CT abdomen/pelvis without contrast, urinalysis, urine . ??We will treat with gentle IV fluid hydration, intravenous opiates/anti-emetics.?? If CT abdomen/pelvis is unremarkable we will therefore proceed with TVUS. Procedure No Qualifying Data Reexamination/Reevaluation 9:00 AM:??This patient's care has been transferred to the incoming physician. We discussed: the patient's chief complaint; labs and imaging that have been completed and those that are still pending; procedures that have been completed and those remaining to be done; any treatment provided and the patient's response to treatment; input from consultants (if any); the remaining treatment plan. The incoming physician will follow up on all pending labs and imaging, make any necessary changes to the current impression and/or treatment plan and provide a final disposition. Assessment/Plan Ordered: Dilaudid, 1 mg = 0.5 mL, IV Push, Injection, every 20 min for 3 doses, PRN pain, moderate, First Dose: 11/21/22 8:30:00 EST, Stop Date: Limited # of times, Physician Stop ondansetron, 4 mg = 2 mL, IV Push, Vial, Once, First Dose: 11/21/22 8:30:00 EST, Stop Date: 11/21/22 8:30:00 EST, Physician Stop, STAT Normal Saline Flush, 10 mL, IV Flush, Injection, As Directed, PRN online content coordinator, First Dose: 11/21/22 8:31:00 EST, Routine Sodium Chloride 0.9% 1,000 mL, Total Volume (mL): 1,000, 1,000 mL, Soln-IV, IV Bolus, 999 mL/hr, Start Date: 11/21/22 8:30:00 EST, Populate Charting Weight From Order Sodium Chloride 0.9% 1,000 mL, Total Volume (mL): 1,000, 1,000 mL, Soln-IV, IV, 125 mL/hr, Start Date: 11/21/22 8:30:00 EST, Populate Charting Weight From Order CBC w/ Diff, Blood, Stat, 11/21/22 8:30:00 EST, Once, Nurse collect Comprehensive Metabolic Panel, Blood, Stat, 11/21/22 8:30:00 EST, Once, Nurse collect CT Abdomen and Pelvis w/o Contrast, 11/21/22 8:30:00 EST, Stat, Reason: Abdominal Pain, Transport Mode: Stretcher Lipase Level, Blood, Stat, 11/21/22 8:30:00 EST, Once, Nurse collect Peripheral IV Insertion, 11/21/22 8:30:00 EST Test Serum Qual, Blood, Stat, 11/21/22 8:30:00 EST, Once, Nurse collect Urinalysis with Micro if Indicated and Culture if Indicated, Urine, Stat Collect, 11/21/22 8:30:00 EST, Once, Nurse collect, Print Label Vital Signs, 11/21/22 8:30:00 EST, Once, Stop date 11/21/22 8:30:00 EST, Q15min until stable and SBP greater than 90, then Q1hour Problem List/Past Medical History Ongoing No qualifying data Historical No qualifying data Allergies No active allergies Family History Non-Contributory Electronically Signed on 11/21/22 08:43 AM Timo Cat, DO Nutrition and dietetics Progress note * Carolyn Raza: PERFORM Event Display: Nutrition Note Authored Date: [id number] Assessment and Monitoring Initial Nutrition Assessment Reason for Referral:??Nutrition jeet or BMI <18.5 ?? Diet Order:??Diet Order -- 11/22/22 14:22:00 EST, Regular Allergies:??SUMAtriptan; tetracycline ?? Nutrition Assessment: 42 yo F admit for abdominal pain, thought to be first appendicitis but per staff doesn't appear to be??that. Was on bowel rest but upgraded to a Regular diet- provider rec eat bland foods right now, like if on the flu to patient. Likely return to good appetite now not NPO.??Monitoring. weight 95kg,appears well nourished. Monitor and??can adjust if nutrition decreased/inadequate. ? Monitor/Evaluation:?? Nutrition Diagnosis no active nutrition diagnosis. Nutrition Goals Pos >75% of meals Skin WNL GI fxn WNL Nutrition Interventions Regular diet follow up prn/ Reason for Visit Pt at home eating breakfast when she felt a pop in her RLQ. Pt states a twisting pain radiating to back and shoulder. Problem List/Past Medical History Ongoing No qualifying data Historical No qualifying data Social History Alcohol Never Electronic Cigarette/Vaping Electronic Cigarette Use: Never. Tobacco Never tobacco user Tobacco Use:. Diet Orders Diet Order, 11/22/22 14:22:00 EST, Regular Allergies SUMAtriptan tetracycline Nutrition Lab Results Test Name Test Result Date/Time WBC 5.2 K/mcL 11/22/2022 06:26 EST Hgb 11.4 g/dL 11/22/2022 06:26 EST Hct 34.6 % 11/22/2022 06:26 EST MCV 90.8 fL 11/22/2022 06:26 EST Platelets 198 K/mcL 11/22/2022 06:26 EST Sodium Level 133 mmol/L 11/22/2022 06:26 EST Potassium Level 3.8 mmol/L 11/22/2022 06:26 EST Chloride Level 104 mmol/L 11/22/2022 06:26 EST CO2 24 mmol/L 11/22/2022 06:26 EST Alk Phos 46 IntlUnit/L 11/21/2022 08:46 EST ALT 26 IntlUnit/L 11/21/2022 08:46 EST BUN 9 mg/dL 11/22/2022 06:26 EST Glucose Level 86 mg/dL 11/22/2022 06:26 EST Creatinine Level 0.67 mg/dL 11/22/2022 06:26 EST Albumin Level 3.6 g/dL 11/21/2022 08:46 EST Bilirubin Total 0.5 mg/dL 11/21/2022 08:46 EST Medications Inpatient acetaminophen, 1000 mg= 100 mL, IV Piggyback, every 6 hr, PRN Eliquis, 5 mg= 1 tab, Oral, BID HYDROmorphone, 0.25 mg= 0.13 mL, IV Push, every 2 hr, PRN ketorolac, 15 mg= 1 mL, IV Push, every 6 hr, PRN Lactated Ringers Injection 1,000 mL, 1000 mL, IV naloxone, 0.1 mg= 0.25 mL, IV Push, every 5 min, PRN Normal Saline Flush, 10 mL, IV Flush, As Directed, PRN ondansetron, 4 mg= 2 mL, IV Push, every 6 hr, PRN ondansetron, 4 mg= 1 tab, Oral, every 6 hr, PRN prochlorperazine, 5 mg= 1 mL, IV Push, every 4 hr, PRN prochlorperazine, 10 mg= 2 tab, Oral, every 6 hr, PRN prochlorperazine, 25 mg= 1 supp, KS, every 12 hr, PRN sertraline, 25 mg= 0.5 tab, Oral, Daily Home Eliquis 5 mg oral tablet, 5 mg= 1 tab, Oral, BID sertraline 25 mg oral tablet, 25 mg= 1 tab, Oral, Daily Electronically Signed on 11/22/22 04:27 PM Carolyn Raza Progress note * Austin Arellano MD: PERFORM Event Display: Progress Note - Physician Authored Date: [id number] NADER TANNER :1980 Age:42 years Sex:Female Visit Date:11/21/2022 Primary Care Physician: Brianna Ferguson APRN Subjective No acute events Reports nausea??and persistent??pain overnight.?? Both have improved??somewhat??over the course of the morning Afebrile, hemodynamically normal Voiding adequately Objective Vitals & Measurements T:??36.3?C ??(Temporal Artery)?? TMIN:??36.1?C ??(Temporal Artery)?? TMAX:??36.4?C ??(Temporal Artery)?? HR:??73??(Peripheral)?? RR:??18?? BP:??119/75?? SpO2:??97%?? Pain Score:??3?? O2 Therapy:??Room air?? Physical Exam Exam: General: No acute distress, pleasant, conversant CV: RRR Pulmonary: Regular breathing rate and effort Abdomen: Soft,??focally tender to palpation in the right lower quadrant??without rebound pain or involuntary guarding Extremities: Warm, well-perfused, no edema Lab Results Last 24 Hours?? Chemistry ? Event Name?? Event Result?? Date/Time?? Sodium Level 133 mmol/L??Low 11/22/22 06:26:50 Potassium Level 3.8 mmol/L 11/22/22 06:26:50 Chloride Level 104 mmol/L 11/22/22 06:26:50 CO2 24 mmol/L 11/22/22 06:26:50 BUN 9 mg/dL 11/22/22 06:26:50 Glucose Level 86 mg/dL 11/22/22 06:26:50 Creatinine Level 0.67 mg/dL 11/22/22 06:26:50 BUN/Creat Ratio 13.4 11/22/22 06:26:50 Calcium Level 7.9 mg/dL??Low 11/22/22 06:26:50 Anion Gap 5 11/22/22 06:26:50 Osmolality 264 mOsm/kg??Low 11/22/22 06:26:50 eGFR CKD-EPI 111 mL/min/1.73 m2 11/22/22 06:26:50 ? Hematology ? Event Name?? Event Result?? Date/Time?? WBC 5.2 K/mcL 11/22/22 06:26:50 RBC 3.81 Million/mcL??Low 11/22/22 06:26:50 Hgb 11.4 g/dL??Low 11/22/22 06:26:50 Hct 34.6 %??Low 11/22/22 06:26:50 MCV 90.8 fL 11/22/22 06:26:50 MCH 29.9 pg 11/22/22 06:26:50 MCHC 32.9 g/dL 11/22/22 06:26:50 RDW-CV 13.2 % 11/22/22 06:26:50 Platelets 198 K/mcL 11/22/22 06:26:50 MPV 10.6 fL??High 11/22/22 06:26:50 Neutro Auto 42.7 % 11/22/22 06:26:50 Lymph Auto 43.6 % 11/22/22 06:26:50 [place] Auto 9.5 %??High 11/22/22 06:26:50 Eos, Auto 2.7 % 11/22/22 06:26:50 Basophil Auto 1.3 %??High 11/22/22 06:26:50 Imm Gran Auto 0.2 % 11/22/22 06:26:50 Neutro Absolute 2.2 K/mcL 11/22/22 06:26:50 Lymph Absolute 2.3 K/mcL 11/22/22 06:26:50 [place] Absolute 0.5 K/mcL 11/22/22 06:26:50 Eos Absolute 0.1 K/mcL 11/22/22 06:26:50 Baso Absolute 0.1 K/mcL 11/22/22 06:26:50 Imm Gran Absolute 0.01 11/22/22 06:26:50 ? Assessment/Plan Acute appendicitis??K35.80 Nader Tanner is a 42-year-old woman??with a history of DVT/PE on chronic anticoagulation??Hospital day #2 admitted with right upper quadrant abdominal pain.?? She has a clinical exam??and CT findings of pericolonic stranding without definitive visualization of the appendix??concerning??for acute a ppendicitis. ??Despite these findings, she is had no leukocytosis. ??Given the diagnostic uncertainty and need for ongoing anticoagulation we proceeded with nonoperative management with bowel rest, IV fluids, and??IV Zosyn.?? She is somewhat clinically improved over the course of the??past 24 hours.?? Prior to restarting her??chronic anticoagulation??today, I recommend we very evaluate with a repeat CT abdomen/pelvis with p.o. and IV contrast.?? If this is??again consistent with early acute appendicitis, will plan to continue nonoperative management and resume anticoagulation.?We will keepn.p.o. in the interim. ??Continue Zosyn. Orders: acetaminophen, 1,000 mg = 100 mL, IV Piggyback, Injection, every 6 hr, PRN pain, mild, Administer over: 0.3 hr, First Dose: 11/21/22 9:58:00 EST, Routine, 333.33 mL/hr CT Abdomen and Pelvis w/ Contrast, 11/22/22 13:30:00 EST, Routine, Reason: RLQ abd pain. Possible appendicitis, but not seen on non contrast scan yesterday. Please scan with PO and IV contrast, Transport Mode: Wheelchair, 11/22/22 11:37:40 EST, 03/07/23 11:37:40 EST Diet Order, 11/21/22 9:58:00 EST, NPO Electronically Signed on 11/22/22 12:30 PM Austin Arellano MD History and physical note * Austin Arellano MD: PERFORM Event Display: History and Physical Authored Date: [id number] NADER TANNER :1980 Age:42 years Sex:Female Visit Date:11/21/2022 Primary Care Physician: Brianna Ferguson APRN Chief Complaint Pt at home eating breakfast when she felt a pop in her RLQ. Pt states a twisting pain radiating to back and shoulder. History of Present Illness Nader Humphrey is a 42-year-old woman who presents to the emergency department this a.m. with??acute onset of right lower quadrant abdominal pain. ??Nader reports that she was in her normal state of health prior to the onset of pain this a.m. while eating breakfast.?? She initially thought she was having gas pains.?? Her pain worsened in severity. ??She had no associated nausea, vomiting, fever,??chills,??diarrhea, or constipation. ??She last moved her bowel was??today. ??This was reportedly normal. ??She denies melena or hematochezia. ??She has no personal??or??family history of inflammatory bowel disease. ??She has had right lower quadrant pain in the setting of prior??ovarian cysts, but this is much more severe. ??When the pain did not improve with??ambulation??or position changes, she??elected to proceed to the emergency department for evaluation.?? She??reports that she is??having no pain while at rest. ??When she moves or sits up she has pain in her right lower abdomen.?? She was evaluated labs and CT concerning for acute appendicitis as below. ??General surgery was consulted. Nader has a significant past medical history of a DVT/PE in May 2022. ??She has been on apixaban since that time. ??She was recently evaluated by[facility] who recommended??long-term anticoagulation with apixaban.?? She last took her apixaban this AM. Review of Systems A 10 point review of systems was completed. ??Notable findings are documented above. Physical Exam Vitals & Measurements T:??36.5?C ??(Temporal Artery)?? HR:??85??(Peripheral)?? RR:??18?? BP:??120/71?? SpO2:??98%?? HT:??152.000??cm?? WT:??95.00??kg??(Estimated)?? Pain Score:??8?? O2 Therapy:??Room air?? General: No acute distress, pleasant, conversant CV: RRR Pulmonary: Regular breathing rate and effort Abdomen: Soft,??tender to deep palpation in the right lower quadrant.?? Positive psoas sign Extremities: Warm, well-perfused, no edema Assessment/Plan Acute appendicitis??K35.80 Nader Tanner is a 42-year-old woman with acute onset of??right lower quadrant abdominal pain. ??She has??clinical history and exam findings??concerning for acute appendicitis.?? She has no leukocytosis. ??Her CT scan shows inflammation around the cecum without definitively visualizing the??appendix. ??This is a limited study due to the lack of IV contrast.?? There is a small ovarian cyst which is??not adjacent to this area of inflammation.?? Suspect this is early acute appendicitis.?? We discussed the typical??treatment options for appendicitis??including??laparoscopic appendectomy and nonoperative management. ??Recommend??nonoperative management??with antibiotics, bowel rest, and serial a bdominal exams in the setting of her ongoing anticoagulation.?? Nader demonstrated good understanding and agreement with this plan.?? Plan for prophylactic Lovenox??dosing this evening.?? We will determine??resumption of??apixaban??tomorrow based on response to nonoperative management. Ordered: PSO Place in Observation, Observation, Observation, Austin Arellano MD, 11/21/22 9:54:00 EST, 11/21/22 9:54:00 EST, 11/21/22 9:54:00 EST, 1 midnight or less ?? Orders: acetaminophen, 1,000 mg = 100 mL, IV Piggyback, Injection, every 8 hr, PRN pain, mild, Administer over: 0.3 hr, First Dose: 11/21/22 9:58:00 EST, Routine, 400 mL/hr enoxaparin, 40 mg = 0.4 mL, Subcutaneous, Injection, every evening, First Dose: 11/21/22 21:00:00 EST, Routine HYDROmorphone, 0.25 mg = 0.13 mL, IV Push, Injection, every 2 hr, PRN pain, severe, First Dose: 11/21/22 9:58:00 EST, Routine ketorolac, 15 mg = 1 mL, IV Push, Vial, every 6 hr, PRN other (see comment), First Dose: 11/21/22 9:58:00 EST, Routine Lactated Ringers Injection 1,000 mL, Total Volume (mL): 1,000, 1,000 mL, Soln- IV, IV, 100 mL/hr, Start Date: 11/21/22 9:58:00 EST, 95 kg, Populate Charting Weight From Order, 2, m2 naloxone, 0.1 mg = 0.25 mL, IV Push, Injection, every 5 min, PRN other (see comment), First Dose: 11/21/22 9:58:00 EST, Routine ondansetron, 4 mg = 2 mL, IV Push, Vial, every 6 hr, PRN nausea/vomiting, First Dose: 11/21/22 9:58:00 EST, Routine ondansetron, 4 mg = 1 tab, Oral, Tab-Dis, every 6 hr, PRN nausea/vomiting, First Dose: 11/21/22 9:58:00 EST, Routine piperacillin-tazobactam, 3.375 g = 1 vials, IV Piggyback, Injection, every 6 hr, Antibiotic Indication Intraabdominal, Administer over: 30 minutes, First Dose: 11/21/22 15:00:00 EST, Routine, 200 mL/hr prochlorperazine, 25 mg = 1 supp, KS, Supp, every 12 hr, PRN nausea/vomiting, First Dose: 11/21/22 9:58:00 EST, Routine prochlorperazine, 5 mg = 1 mL, IV Push, Vial, every 4 hr, PRN nausea/vomiting, First Dose: :58:00 EST, Routine prochlorperazine, 10 mg = 2 tab, Oral, Tab, every 6 hr, PRN nausea/vomiting, First Dose: 11/21/22 9:58:00 EST, Routine Ambulate, 11/21/22 9:58:00 EST, Constant order Basic Metabolic Panel, Blood, Routine, 11/21/22 9:59:00 EST, Daily, for 3 days, Lab Collect CBC w/ Diff, Blood, Routine, 11/21/22 9:59:00 EST, Daily, for 3 days, Lab Collect Diet Order, 11/21/22 9:58:00 EST, NPO Incentive Spirometry Nursing, 11/21/22 9:58:00 EST Intake and Output, 11/21/22 9:58:00 EST, every 12 hr (juan francisco), q shift, 11/21/22 21:00:00 EST Patient Condition, 11/21/22 9:58:00 EST, Condition Good/ Stable Resuscitation Status, 11/21/22 9:58:00 EST, Full Code Sequential Compression Devices (SCD's), 11/21/22 9:58:00 EST, Constant Order Sequential Compression Devices (SCD's), 11/21/22 9:58:00 EST, Constant Order Up to Chair, 11/21/22 9:58:00 EST, Constant order Vital Signs, 11/21/22 9:58:00 EST, every 4 hr (juan francisco) Problem List/Past Medical History Ongoing No qualifying data Historical No qualifying data Medications Inpatient acetaminophen, 1000 mg= 100 mL, IV Piggyback, every 8 hr, PRN Dilaudid, 1 mg= 0.5 mL, IV Push, every 20 min, PRN enoxaparin, 40 mg= 0.4 mL, Subcutaneous, every evening HYDROmorphone, 0.25 mg= 0.13 mL, IV Push, every 2 hr, PRN ketorolac, 15 mg= 1 mL, IV Push, every 6 hr, PRN Lactated Ringers Injection 1,000 mL, 1000 mL, IV naloxone, 0.1 mg= 0.25 mL, IV Push, every 5 min, PRN Normal Saline Flush, 10 mL, IV Flush, As Directed, PRN ondansetron, 4 mg= 2 mL, IV Push, every 6 hr, PRN ondansetron, 4 mg= 1 tab, Oral, every 6 hr, PRN piperacillin-tazobactam prochlorperazine, 5 mg= 1 mL, IV Push, every 4 hr, PRN prochlorperazine, 10 mg= 2 tab, Oral, every 6 hr, PRN prochlorperazine, 25 mg= 1 supp, KS, every 12 hr, PRN Sodium Chloride 0.9% 1,000 mL, 1000 mL, IV Bolus Sodium Chloride 0.9% 1,000 mL, 1000 mL, IV Home Eliquis 5 mg oral tablet sertraline 25 mg oral tablet Allergies SUMAtriptan tetracycline Social History Alcohol Never Electronic Cigarette/Vaping Electronic Cigarette Use: Never. Tobacco Never tobacco user Tobacco Use:. Lab Results Last 24 Hours?? Chemistry ? Event Name?? Event Result?? Date/Time?? Sodium Level 135 mmol/L 11/21/22 08:46:00 Potassium Level 3.9 mmol/L 11/21/22 08:46:00 Chloride Level 100 mmol/L 11/21/22 08:46:00 CO2 27 mmol/L 11/21/22 08:46:00 Alk Phos 46 IntlUnit/L 11/21/22 08:46:00 AST 23 IntlUnit/L 11/21/22 08:46:00 ALT 26 IntlUnit/L 11/21/22 08:46:00 BUN 10 mg/dL 11/21/22 08:46:00 Glucose Level 95 mg/dL 11/21/22 08:46:00 Creatinine Level 0.45 mg/dL 11/21/22 08:46:00 BUN/Creat Ratio 22.2??High 11/21/22 08:46:00 Calcium Level 8.9 mg/dL 11/21/22 08:46:00 Protein Total 7.3 g/dL 11/21/22 08:46:00 Albumin Level 3.6 g/dL 11/21/22 08:46:00 Globulin 3.7 11/21/22 08:46:00 A/G Ratio 1 11/21/22 08:46:00 Bilirubin Total 0.5 mg/dL 11/21/22 08:46:00 Anion Gap 8 11/21/22 08:46:00 Lipase Level 34 unit/L 11/21/22 08:46:00 Osmolality 269 mOsm/kg??Low 11/21/22 08:46:00 eGFR CKD-EPI 122 mL/min/1.73 m2 11/21/22 08:46:00 hCG Qual Serum Negative 11/21/22 08:46:00 ? Hematology ? Event Name?? Event Result?? Date/Time?? WBC 6.1 K/mcL 11/21/22 08:46:00 RBC 4.55 Million/mcL 11/21/22 08:46:00 Hgb 13.6 g/dL 11/21/22 08:46:00 Hct 41.6 % 11/21/22 08:46:00 MCV 91.4 fL 11/21/22 08:46:00 MCH 29.9 pg 11/21/22 08:46:00 MCHC 32.7 g/dL 11/21/22 08:46:00 RDW-CV 13.2 % 11/21/22 08:46:00 Platelets 245 K/mcL 11/21/22 08:46:00 MPV 10.6 fL??High 11/21/22 08:46:00 Neutro Auto 61.9 % 11/21/22 08:46:00 Lymph Auto 27.1 % 11/21/22 08:46:00 [place] Auto 8.5 % 11/21/22 08:46:00 Eos, Auto 1.5 % 11/21/22 08:46:00 Basophil Auto 0.8 % 11/21/22 08:46:00 Imm Gran Auto 0.2 % 11/21/22 08:46:00 Neutro Absolute 3.8 K/mcL 11/21/22 08:46:00 Lymph Absolute 1.7 K/mcL 11/21/22 08:46:00 [place] Absolute 0.5 K/mcL 11/21/22 08:46:00 Eos Absolute 0.1 K/mcL 11/21/22 08:46:00 Baso Absolute 0 K/mcL 11/21/22 08:46:00 Imm Gran Absolute 0.01 11/21/22 08:46:00 ? Diagnostic Results ?? CT Abdomen and Pelvis w/o Contrast ?? 11/21/22 09:02:15 EXAM DESCRIPTION: CT Abdomen and Pelvis w/o Contrast ?? 11/21/2022 ?? INDICATION: ABDOMINAL PAIN ?? TECHNIQUE: All CT scans at this facility use at least one of these dose optimization techniques: Automated exposure control; mA and/or kV adjustment per patient size (includes targeted exams where dose is matched to clinical indication); or iterative reconstruction. ?? Technique: Axial CT images of the abdomen/pelvis without IV contrast administration ?? COMPARISON: None ?? FINDINGS: Tiny low-attenuation lesion in the lateral aspect of the right hepatic lobe measuring a few mm in size, too small to characterize. Liver otherwise demonstrates a normal unenhanced CT appearance ?? Normal spleen size ?? Status post cholecystectomy ?? Adrenal glands and pancreas demonstrate a normal unenhanced CT appearance. ?? No renal calculi on either side. No hydronephrosis or hydroureter on either side with no evidence of obstructing urinary tract calculus. ?? Ovoid fluid attenuation lesion in the right adnexa most consistent with right ovarian cyst measuring approximately 3 x 2.8 cm. ?? Normal caliber abdominal aorta. No retroperitoneal adenopathy in the abdomen or pelvis. ?? Inflammatory stranding and fluid accumulation in the right lower quadrant extending adjacent to the cecum. The appendix is not identified with certainty. Findings are suspicious for acute appendicitis. No focal fluid collection in this region to suggest abscess at this time. No free intraperitoneal air. No bowel dilatation to suggest obstruction or ileus. ?? Minimal subsegmental atelectasis or scarring in the lingula. Visualized lung bases are otherwise clear. ?? No suspicious regional osseous lesions. Grade 1 spondylolisthesis at L5-S1 with bilateral L5 pars defects. Spondylotic changes in the visualized spinal axis. ?? IMPRESSION: Findings suspicious for acute appendicitis as described above. No evidence of abscess or free air. ?? Nonobstructive bowel pattern. ?? Right ovarian cyst measuring 3 x 2.8 cm. ?? Results telephoned to ER physician at the time of interpretation. ? JOB #: [id number] ?? Signed By: Eulalio Moffett MD ? Electronically Signed on 11/21/22 10:07 AM Austin Arellano MD Discharge summary * Austin Arellano MD: PERFORM Event Display: Discharge Summary Authored Date: [id number] NADER TANNER :1980 Age:42 years Sex:Female Visit Date:11/21/2022 Primary Care Physician: Brianna Ferguson APRN Admission Information Nader Tanner is a 42-year-old woman with acute onset of??right lower quadrant abdominal pain. ??She has??clinical history and exam findings??concerning for acute appendicitis.?? She has no leukocytosis. ??Her CT scan shows inflammation around the cecum without definitively visualizing the??appendix. ??This is a limited study due to the lack of IV contrast.?? There is a small ovarian cyst which is??not adjacent to this area of inflammation.?? Suspect this is early acute appendicitis.?? We discussed the typical??treatment options for appendicitis??including??laparoscopic appendectomy and nonoperative management. ??Recommend??nonoperative management??with antibiotics, bowel rest, and serial a bdominal exams in the setting of her ongoing anticoagulation.?? Nader demonstrated good understanding and agreement with this plan. 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 She improved rapidly over the course of the next??day.?? A repeat CT abdomen/pelvis was performed with p.o. and IV contrast that demonstrated no evidence to suggest acute appendicitis. ??She hada large right ovarian cyst.?? Antibiotics were discontinued. ??Her??diet was advanced to regular diet which she tolerated well. ??Her pain was well controlled with Tylenol.?She was deemed appropriate for discharge to home on hospital day #2. 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 Physical Exam Vitals & Measurements T:??36.8?C ??(Temporal Artery)?? TMIN:??36.1?C ??(Temporal Artery)?? TMAX:??36.8?C ??(Temporal Artery)?? HR:??68??(Peripheral)?? RR:??18?? BP:??122/80?? SpO2:??99%?? Pain Score:??4?? O2 Therapy:??Room air?? General: No acute distress, pleasant, conversant CV: RRR Pulmonary: Regular breathing rate and effort Abdomen: Soft, mild distended,??mildly tender to deep palpation of the right lower quadrant withoutrebound pain or guarding. Medications Inpatient acetaminophen, 1000 mg= 100 mL, IV Piggyback, every 6 hr, PRN Eliquis, 5 mg= 1 tab, Oral, BID HYDROmorphone, 0.25 mg= 0.13 mL, IV Push, every 2 hr, PRN ketorolac, 15 mg= 1 mL, IV Push, every 6 hr, PRN Lactated Ringers Injection 1,000 mL, 1000 mL, IV naloxone, 0.1 mg= 0.25 mL, IV Push, every 5 min, PRN Normal Saline Flush, 10 mL, IV Flush, As Directed, PRN ondansetron, 4 mg= 2 mL, IV Push, every 6 hr, PRN ondansetron, 4 mg= 1 tab, Oral, every 6 hr, PRN prochlorperazine, 5 mg= 1 mL, IV Push, every 4 hr, PRN prochlorperazine, 10 mg= 2 tab, Oral, every 6 hr, PRN prochlorperazine, 25 mg= 1 supp, KS, every 12 hr, PRN sertraline, 25 mg= 0.5 tab, Oral, Daily Home Eliquis 5 mg oral tablet, 5 mg= 1 tab, Oral, BID sertraline 25 mg oral tablet, 25 mg= 1 tab, Oral, Daily Social History Alcohol Never Electronic Cigarette/Vaping Electronic Cigarette Use: Never. Tobacco Never tobacco user Tobacco Use:. Lab Results Last 1 Week?? Chemistry ? Event Name?? Event Result?? Date/Time?? Sodium Level 133 mmol/L??Low 11/22/22 06:26:50 Potassium Level 3.8 mmol/L 11/22/22 06:26:50 Chloride Level 104 mmol/L 11/22/22 06:26:50 CO2 24 mmol/L 11/22/22 06:26:50 Alk Phos 46 IntlUnit/L 11/21/22 08:46:00 AST 23 IntlUnit/L 11/21/22 08:46:00 ALT 26 IntlUnit/L 11/21/22 08:46:00 BUN 9 mg/dL 11/22/22 06:26:50 Glucose Level 86 mg/dL 11/22/22 06:26:50 Creatinine Level 0.67 mg/dL 11/22/22 06:26:50 BUN/Creat Ratio 13.4 11/22/22 06:26:50 Calcium Level 7.9 mg/dL??Low 11/22/22 06:26:50 Protein Total 7.3 g/dL 11/21/22 08:46:00 Albumin Level 3.6 g/dL 11/21/22 08:46:00 Globulin 3.7 11/21/22 08:46:00 A/G Ratio 1 11/21/22 08:46:00 Bilirubin Total 0.5 mg/dL 11/21/22 08:46:00 Anion Gap 5 11/22/22 06:26:50 Lipase Level 34 unit/L 11/21/22 08:46:00 Osmolality 264 mOsm/kg??Low 11/22/22 06:26:50 eGFR CKD-EPI 111 mL/min/1.73 m2 11/22/22 06:26:50 hCG Qual Serum Negative 11/21/22 08:46:00 ? Hematology ? Event Name?? Event Result?? Date/Time?? WBC 5.2 K/mcL 11/22/22 06:26:50 RBC 3.81 Million/mcL??Low 11/22/22 06:26:50 Hgb 11.4 g/dL??Low 11/22/22 06:26:50 Hct 34.6 %??Low 11/22/22 06:26:50 MCV 90.8 fL 11/22/22 06:26:50 MCH 29.9 pg 11/22/22 06:26:50 MCHC 32.9 g/dL 11/22/22 06:26:50 RDW-CV 13.2 % 11/22/22 06:26:50 Platelets 198 K/mcL 11/22/22 06:26:50 MPV 10.6 fL??High 11/22/22 06:26:50 Neutro Auto 42.7 % 11/22/22 06:26:50 Lymph Auto 43.6 % 11/22/22 06:26:50 [place] Auto 9.5 %??High 11/22/22 06:26:50 Eos, Auto 2.7 % 11/22/22 06:26:50 Basophil Auto 1.3 %??High 11/22/22 06:26:50 Imm Gran Auto 0.2 % 11/22/22 06:26:50 Neutro Absolute 2.2 K/mcL 11/22/22 06:26:50 Lymph Absolute 2.3 K/mcL 11/22/22 06:26:50 [place] Absolute 0.5 K/mcL 11/22/22 06:26:50 Eos Absolute 0.1 K/mcL 11/22/22 06:26:50 Baso Absolute 0.1 K/mcL 11/22/22 06:26:50 Imm Gran Absolute 0.01 11/22/22 06:26:50 ? Urinalysis ? Event Name?? Event Result?? Date/Time?? UA Color YELLOW. 11/21/22 10:13:00 UA Appear CLEAR. 11/21/22 10:13:00 UA Glucose NEGATIVE 11/21/22 10:13:00 UA Bili NEGATIVE 11/21/22 10:13:00 UA Ketones NEGATIVE 11/21/22 10:13:00 UA Spec Grav 1.01 11/21/22 10:13:00 UA Blood NEGATIVE 11/21/22 10:13:00 UA pH 7 11/21/22 10:13:00 UA Protein NEGATIVE 11/21/22 10:13:00 UA Urobilinogen 0.2 11/21/22 10:13:00 UA Nitrite NEGATIVE 11/21/22 10:13:00 UA Leuk Est NEGATIVE 11/21/22 10:13:00 ? All Other Results ? Event Name?? Event Result?? Date/Time?? SARS-CoV-2 (COVID-19) PCR (GeneXpert) Neg-GeneXPert 11/21/22 09:30:00 Employed in healthcare? No 11/21/22 09:30:00 Symptomatic as defined by CDC? No 11/21/22 09:30:00 Hospitalized due to COVID-19? No 11/21/22 09:30:00 In ICU? No 11/21/22 09:30:00 Group care resident? No 11/21/22 09:30:00 status? Not 11/21/22 09:30:00 ? Diagnostic Results X-Ray:?? Computed Tomography: ?? CT Abdomen and Pelvis w/ Contrast ?? 11/22/22 13:58:58 EXAM DESCRIPTION: CT Abdomen and Pelvis w/ Contrast ?? 11/22/2022 ?? INDICATION: RLQ ABD PAIN. POSSIBLE APPENDICITIS, BUT NOT SEEN ON NON CONTRAST SCAN YESTERDAY. PLEASE SCAN WITH PO AND IV CONTRAST ?? TECHNIQUE: All CT scans at this facility use at least one of these dose optimization techniques: Automated exposure control; mA and/or kV adjustment per patient size (includes targeted exams where dose is matched to clinical indication); or iterative reconstruction. ?? Technique: Axial CT images of the abdomen/pelvis with IV contrast administration ?? 100 cc of Isovue 370 contrast was utilized. Oral contrast was also administered ?? COMPARISON: CT abdomen/pelvis without contrast from 11/21/2022 ?? FINDINGS: No focal hepatic lesion. Normal enhancement of the main hepatic veins and main portal vein. ?? Normal spleen size without focal mass ?? Status post cholecystectomy ?? Adrenal glands and pancreas appear within normal limits. ?? No focal renal mass, hydronephrosis or perinephric fluid collection on either side ?? Normal caliber abdominal aorta. No retroperitoneal adenopathy in the abdomen or pelvis. ?? Right ovarian cyst measuring approximately 4.3 x 3.1 cm, slightly larger since recent study. ?? No bowel dilatation to suggest obstruction or ileus. Oral contrast extends into the appendix which is normal in caliber. Small amount of fluid adjacent to the appendix which appears less extensive since recent study. Acute appendicitis is considered unlikely based on this study. No free intraperitoneal air. Small amount of free fluid in the pelvis with no significant ascites. ?? Minimal subsegmental atelectatic changes in both lung bases. ?? No suspicious regional osseous lesions. Grade 1 spondylolisthesis at L5-S1 with bilateral L5 pars defects as described previously. Spondylotic changes in the visualized spinal axis. ?? IMPRESSION: Nonobstructive bowel pattern. The appendix is normal in caliber with oral contrast extending into the appendiceal lumen. Small amount of fluid adjacent to the appendix which appears improved since recent study. Acute appendicitis is felt to be unlikely based on this study. ?? Mild free fluid in the pelvis. No free air ?? Right ovarian cyst measuring approximately 4.3 x 3.1 cm, slightly larger since recent study. ? JOB #: [id number] Electronically Signed By: ?? Signed By: Eulalio Moffett MD ?? CT Abdomen and Pelvis w/o Contrast ?? 11/21/22 09:02:15 EXAM DESCRIPTION: CT Abdomen and Pelvis w/o Contrast ?? 11/21/2022 ?? INDICATION: ABDOMINAL PAIN ?? TECHNIQUE: All CT scans at this facility use at least one of these dose optimization techniques: Automated exposure control; mA and/or kV adjustment per patient size (includes targeted exams where dose is matched to clinical indication); or iterative reconstruction. ?? Technique: Axial CT images of the abdomen/pelvis without IV contrast administration ?? COMPARISON: None ?? FINDINGS: Tiny low-attenuation lesion in the lateral aspect of the right hepatic lobe measuring a few mm in size, too small to characterize. Liver otherwise demonstrates a normal unenhanced CT appearance ?? Normal spleen size ?? Status post cholecystectomy ?? Adrenal glands and pancreas demonstrate a normal unenhanced CT appearance. ?? No renal calculi on either side. No hydronephrosis or hydroureter on either side with no evidence of obstructing urinary tract calculus. ?? Ovoid fluid attenuation lesion in the right adnexa most consistent with right ovarian cyst measuring approximately 3 x 2.8 cm. ?? Normal caliber abdominal aorta. No retroperitoneal adenopathy in the abdomen or pelvis. ?? Inflammatory stranding and fluid accumulation in the right lower quadrant extending adjacent to the cecum. The appendix is not identified with certainty. Findings are suspicious for acute appendicitis. No focal fluid collection in this region to suggest abscess at this time. No free intraperitoneal air. No bowel dilatation to suggest obstruction or ileus. ?? Minimal subsegmental atelectasis or scarring in the lingula. Visualized lung bases are otherwise clear. ?? No suspicious regional osseous lesions. Grade 1 spondylolisthesis at L5-S1 with bilateral L5 pars defects. Spondylotic changes in the visualized spinal axis. ?? IMPRESSION: Findings suspicious for acute appendicitis as described above. No evidence of abscess or free air. ?? Nonobstructive bowel pattern. ?? Right ovarian cyst measuring 3 x 2.8 cm. ?? Results telephoned to ER physician at the time of interpretation. ? JOB #: [id number] Electronically Signed By: ?? Signed By: Eulalio Moffett MD Ultrasound:?? MRI:?? Echo:?? Mammography:?? Position Emission Tomography (PET):?? Discharge Plan 1.??Ovarian cyst??N83.209 Nader Marte is a 42-year-old woman admitted??on 11/21/2022 with right lower quadrant abdominal pain and CT findings concerning for acute appendicitis. ??Despite initial impression from her exam and CT, she had no leukocytosis??and is significantly improving exam by the next AM.?? Her??a repeat CT a bdomen/pelvis was performed??with IV and p.o. contrast. ??This demonstrated??no significant dilation or??periappendiceal inflammatory changes to suggest acute appendicitis. ??She had an??right ovarian cyst??without evidence of rupture. ??This was larger on her repeat CT then initially??evaluated. ??There were no other acute intra-abdominal findings.?? Given her rapid improvement in her symptoms and??the lack of evidence suggest??other acute surgical findings, she was??deemed appropriate for discharge to home.?? 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 Orders: Eliquis, 5 mg = 1 tab, Oral, Tab, BID, First Dose: 11/22/22 16:00:00 EST, Routine Diet Order, 11/22/22 14:22:00 EST, Regular Discharge Diet Instruction, Regular home diet Discharge Disposition, 11/22/22 16:04:00 EST, Home Independently Discharge Patient, 11/22/22 16:04:00 EST Peripheral IV Discontinue, 11/22/22 16:03:00 EST All Diagnoses This Visit Ovarian cyst Patient Discharge Condition Stable Discharge Disposition Home independently Patient Instructions Resume your usual??Eliquis??dose this evening. ??Resume usual activities. ??Advance diet to regulardiet as tolerated.?? Recommend??considering probiotics viewed having issues with constipation or diarrhea following??your short course of antibiotics.?? Follow-up with your PCP and/or filling hauler weaving asneeded for any ongoing symptoms.?? No follow-up with general surgery as indicated. 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 ?? Unchanged apixaban (Eliquis 5 mg oral tablet)1 tab Oral (given by mouth) 2 times a day. [1]??H & P; Austin Arellano MD 11/21/2022 10:07 EST Electronically Signed on 11/22/22 04:15 PM Austin Arellano MD CT Abdomen and Pelvis W contrast IV * Eulalio Moffett MD: VERIFY, VERIFY Event Display: Report EXAM DESCRIPTION: CT Abdomen and Pelvis w/ Contrast 11/22/2022 INDICATION: RLQ ABD PAIN. POSSIBLE APPENDICITIS, BUT NOT SEEN ON NON CONTRAST SCAN YESTERDAY. PLEASE SCAN WITH PO AND IV CONTRAST TECHNIQUE: All CT scans at this facility use at least one of these dose optimization techniques: Automated exposure control; mA and/or kV adjustment per patient size (includes targeted exams where dose is matched to clinical indication); or iterative reconstruction. Technique: Axial CT images of the abdomen/pelvis with IV contrast administration 100 cc of Isovue 370 contrast was utilized. Oral contrast was also administered COMPARISON: CT abdomen/pelvis without contrast from 11/21/2022 FINDINGS: No focal hepatic lesion. Normal enhancement of the main hepatic veins and main portal vein. Normal spleen size without focal mass Status post cholecystectomy Adrenal glands and pancreas appear within normal limits. No focal renal mass, hydronephrosis or perinephric fluid collection on either side Normal caliber abdominal aorta. No retroperitoneal adenopathy in the abdomen or pelvis. Right ovarian cyst measuring approximately 4.3 x 3.1 cm, slightly larger since recent study. No bowel dilatation to suggest obstruction or ileus. Oral contrast extends into the appendix which is normal in caliber. Small amount of fluid adjacent to the appendix which appears less extensive since recent study. Acute appendicitis is considered unlikely based on this study. No free intraperitoneal air. Small amount of free fluid in the pelvis with no significant ascites. Minimal subsegmental atelectatic changes in both lung bases. No suspicious regional osseous lesions. Grade 1 spondylolisthesis at L5-S1 with bilateral L5 pars defects as described previously. Spondylotic changes in the visualized spinal axis. IMPRESSION: Nonobstructive bowel pattern. The appendix is normal in caliber with oral contrast extending into the appendiceal lumen. Small amount of fluid adjacent to the appendix which appears improved since recent study. Acute appendicitis is felt to be unlikely based on this study. Mild free fluid in the pelvis. No free air Right ovarian cyst measuring approximately 4.3 x 3.1 cm, slightly larger since recent study. JOB #: [id number] Final Signed by: Eulalio Moffett MD Signed (Electronic Signature): 11/22/2022 1:[address] Abdomen and Pelvis WO contrast * Eulalio Moffett MD: VERIFY, VERIFY Event Display: Report EXAM DESCRIPTION: CT Abdomen and Pelvis w/o Contrast 11/21/2022 INDICATION: ABDOMINAL PAIN TECHNIQUE: All CT scans at this facility use at least one of these dose optimization techniques: Automated exposure control; mA and/or kV adjustment per patient size (includes targeted exams where dose is matched to clinical indication); or iterative reconstruction. Technique: Axial CT images of the abdomen/pelvis without IV contrast administration COMPARISON: None FINDINGS: Tiny low-attenuation lesion in the lateral aspect of the right hepatic lobe measuring a few mm in size, too small to characterize. Liver otherwise demonstrates a normal unenhanced CT appearance Normal spleen size Status post cholecystectomy Adrenal glands and pancreas demonstrate a normal unenhanced CT appearance. No renal calculi on either side. No hydronephrosis or hydroureter on either side with no evidence of obstructing urinary tract calculus. Ovoid fluid attenuation lesion in the right adnexa most consistent with right ovarian cyst measuring approximately 3 x 2.8 cm. Normal caliber abdominal aorta. No retroperitoneal adenopathy in the abdomen or pelvis. Inflammatory stranding and fluid accumulation in the right lower quadrant extending adjacent to the cecum. The appendix is not identified with certainty. Findings are suspicious for acute appendicitis. No focal fluid collection in this region to suggest abscess at this time. No free intraperitoneal air. No bowel dilatation to suggest obstruction or ileus. Minimal subsegmental atelectasis or scarring in the lingula. Visualized lung bases are otherwise clear. No suspicious regional osseous lesions. Grade 1 spondylolisthesis at L5-S1 with bilateral L5 pars defects. Spondylotic changes in the visualized spinal axis. IMPRESSION: Findings suspicious for acute appendicitis as described above. No evidence of abscess or free air. Nonobstructive bowel pattern. Right ovarian cyst measuring 3 x 2.8 cm. Results telephoned to ER physician at the time of interpretation. JOB #: [id number] Final Signed by: Eulalio Moffett MD Signed (Electronic Signature): 11/21/2022 9:02 am Patient Care team information Care Team Personnel Name: Blake Matute APRN Position: Physician Member Role: Nurse Practitioner Address: Address: [address] [place] [address] Name: Brianna Ferguson APRN Position: Physician Member Role: Primary Care Physician Address: Address: [address] [place], [place] [address] Name: Timo Cat DO Position: Physician Address: Address: [address] [place] [id number] Name: Efren Carnes Position: Nurse Member Role: Registered Nurse Care Team Related Persons Name: TRICIA TANNER
--- OUTSIDE RECORDS SUMMARY | 2024-06-17 09:59 | XMS_ITS | Clinical Summary ---
Author Organization [facility] Address [facility] [place] [address] Care Team Providers Care Plating Machine Operator Name Role Phone Page, Brianna Rodriguez APRN Primary Care Provider [phone] Allergies Active Allergy Reactions Criticality Noted Date Comments Sumatriptan Medium 11/18/2022 Ringing in ears Tetracyclines Diarrhea Medium 11/18/2022 Medications Medication Sig Dispensed Refills Start Date End Date Status apixaban (Eliquis) 5 mg Tablet Take 5 mg by mouth 2 times daily. Active sertraline (Zoloft) 25 mg Tablet Take 25 mg by mouth daily. Active Active Problems No known active problems Social History Tobacco Use Types Packs/Day Years Used Date Smoking Tobacco: Never Smokeless Tobacco: Never Tobacco Cessation:Counseling Given: Not Answered Sex and Gender Information Value Date Recorded Sex Assigned at Not on file Gender Identity Not on file Sexual Orientation Not on file Last Filed Vital Signs Vital Sign Reading Time Taken Comments Blood Pressure 126/78 11/18/2022 10:09 AM EST Pulse 76 11/18/2022 10:09 AM EST Temperature 36.4 ??C (97.5 ??F) 11/18/2022 10:[address] Respiratory Rate 18 11/18/2022 10:09 AM EST Oxygen Saturation 99% 11/18/2022 10:09 AM EST Inhaled Oxygen Concentration - - Weight 96.2 kg (212 lb 1.3 oz) 11/18/2022 10:09 AM EST Height 153.7 cm (5' 0.51) 11/18/2022 10:[address] Body Mass Index 40.72 11/18/2022 10:09 AM EST Plan of Treatment Health Maintenance Due Date Last Done Comments CT Colonography 1979 Colonoscopy 1979 Colorectal Cancer Screening 1979 FIT DNA 1979 FIT 1979 Sigmoidoscopy (10 year) with FIT yearly 1979 Sigmoidoscopy 1979 HIV screen 1997 Hepatitis C Screening 1997 Lipid Screening 1997 Hepatitis B vaccine (0-59 yrs) (1) 1998 Tetanus/Diphtheria/Pertussis Vaccines (1 - Tdap) 04/30 HPV test 2009 PAP Smear 2009 Breast Cancer Share Decision Needed 2019 Breast Cancer screening 2019 Diabetes Screening (HgbA1C or Glucose) 2019 Covid-19 Vaccine ( - season) 2024 Influenza (Flu) vaccine (1 o f 1 - Influenza standard series) 05/19/2024 Care Teams Plating Machine Operator Relationship Specialty Start Date End Date Brianna Ferguson APRN [address] [place] [address] PCP - General Family Medicine 12/09/22
--- OUTSIDE RECORDS SUMMARY | 2024-06-17 09:59 | XMS_ITS | Encounter Summary ---
Author Organization [facility] [place] [address] Care Team Providers Care Director Sterile Processing Name Role Phone Unknown Primary Care Provider Unavailabl e Reason for Referral * Diagnostic Test (Routine) - Closed Specialty Diagnoses / Procedures Referred By Benitez nguyen Referred To Contact Diagnoses Acute deep vein thrombosis (DVT) of left lower extremity, unspecified vein Anticoagulated by anticoagulation treatment Other acute pulmonary embolism, unspecified whether acute cor pulmonale present Procedures Duplex for DVT, Leg, Unilat Ana Barnes MD [facility] HEMATOLOGY [place] [address] [facility] [address] [address] Referral ID Status Reason Start Date Expiration Date V isits Requested Visits Authorized [id number] Closed Specialty Service Requested 11/18/2022 11/18/2023 1 1 Reason for Visit * Reason Comments Advice Only * Consultation (Routine) - Closed Specialty Diagnoses / Procedures Referred By Benitez nguyen Referred To Contact Hematology and Oncology Diagnoses Personal history of PE (pulmonary embolism) Obesity, unspecified classification, unspecified obesity type, unspecified whether serious comorbidity present Family history of pulmonary embolism Brianna Ferguson, COMMERCIAL RELATIONSHIP MANAGER [address] [place] [address] [facility] On[facility] [address] [place] [address] Referral ID Status Reason Start Date Expiration Date V isits Requested Visits Authorized [id number] Closed Consult, Test & Treat PCP Updated and/or Approved 08/25/2022 08/25/2023 6 6 Encounter Details Date Type Department Care Team (Latest Contact Info) Description 11/18/2022 10:00 AM EST Office Visit Hematology [place] [address] Ana Barnes MD [facility] HEMATOLOGY [place] [address] Acute deep vein thrombosis (DVT) of left [...] on file documented as of this encounter Last Filed Vital Signs Vital Sign Reading [...] Mass Index 40.72 11/18/2022 10:09 AM EST documented in this encounter Progress Notes * Ana Barnes MD - 11/18/2022 10:00 AM EST Images from the original note were not included. THROMBOSIS CONSULTATION DATE OF VISIT 11/18/2022 Patient Ananya Tanner 1980 REFERRING PROVIDER Brianna Ferguson APRN PRIMARY CARE PHYSICIAN Unknown REASON FOR CONSULTATION Anticoagulation recomendations HISTORY OF THE PRESENT ILLNESS Ananya Tanner is a 42 y.o. woman with a left leg DVT/PE, who is seen in consultation at the request of Brianna Ferguson APRN for anticoagulation recommendations.The history is obtained from the patient, and I have reviewed the scant medical records provided by the referring physician and located in the electronic medical record to fill in gaps in the patient's recollection of events, treatments andoutcomes. Ananya was well until some time in [...] instructed to go the local ER in [place] where a CTPA on 06-14-2022 showed large, bilateral partially occlusive thrombi involving the proximal left and mid right PAs with RV dilation. She was given a dose of what sounds like enoxaparin and attempts to transfer her to a tertiary care center made for consideration for possible thrombolysis. Apparently there were no available beds in any facility in the region (including ) so she was admitted to the ICU in [place] and treated with IV unfractionated heparin. She improved clinically and was discharged on apixaban after a 3 day hospitalization. Apixaban continuesto current day. A venous duplex study was apparently done (I don't have the report of the result) and apparently showed a DVT in the left calf. This is Ananya's first episode of VTE. [...] PE in association with advanced uterine cancer. Ananay is overweight but generally healthy and does not smoke. Her thrombosis risk factors are noted below: THROMBOSIS RISK FACTORS Risk Factor Comment Obesity (BMI >30 kg/m2) V/A X Body mass index is 40.72 kg/m??. COVID-19 (<3-6 months) V/A Diabetes V/A Current smoker V/A Estrogen or estrogen/progestin V/A V/A Inflammatory disease V/A Recent surgery (<3 months) V Recent hospitalization (<3 mo) V Recent travel (<3 mo) V Period of immobility V Documented thrombophilia V Accident/Trauma V/A Cancer or treatment for cancer V/A Blood transfusion V/A Central venous catheter V Family history (1st degree) V/A X Varicose veins/venous insuff. V Hypertension A Hyperlipidemia A Vascular disease A V: Risk factor for venous thrombosis; A: Risk factor for arterial thrombosis In the office today Ananya reports feeling generally OK. Though her pulmonary symptoms are much improved she still has some residual shortness of breath on exertion and fatigue. She notes some residual swelling in her left ankle, but it is mild and doesn't seem to worsen by the end of the day. Shedoes not wear compression stockings. She's had no significant bleeding with apixaban aside from a slight increase in the heaviness of her menstrual periods, especially since stopping [place]. She is interested in knowing what may have caused this VTE event, whether there is a hereditary component and how best to prevent a recurrence. She's not averse to continuing with apixaban for the half-way, thou gh the cost is an issue. PAST MEDICAL HISTORY 1. Venous thromboembolism, as above Left leg DVT/submassive PE Rx heparin --> apixaban to current day 2. Anxiety 3. Hx ruptured ovarian cyst [...] visit. ADVERSE DRUG REACTIONS Allergies as of 11/18/2022 - Review Complete 11/18/2022 Allergen Reaction Noted ??? Imitrex [sumatriptan] 11/18/2022 ??? Tetracyclines Diarrhea 11/18/2022 FAMILY HISTORY Mother at age 60 of complications of uterine cancer. Had PE Father alive, no VTE 1 brother, no VTE Maternal grandmother with DVTs SOCIAL HISTORY Grew up in [place], [place]. 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 GENERAL: Well-appearing, articulate white female. HEENT: Oropharynx clear; no mucosal lesions, petechiae, bleeding, thrush or ulcers. NECK: Supple; no cervical, supraclavicular or submental adenopathy. BREASTS: Exam deferred. CHEST/LUNGS: Clear to auscultation/percussion. No rales, rhonchi, wheezes. HEART: Regular rate and rhythm; no murmur, rub, gallop GASTROINTESTINAL: Abdomen benign. GENITOURINARY: Exam deferred. EXTREMITIES: Left calf is slightly larger than right with trace left pedal edema. No erythema, tenderness or palpable cords. No venous varicosities. No skin discoloration or hemosiderin deposits. Peripheral pulses palpable. MUSCULOSKELETAL: Spine nontender. Full ROM all joints. No acutely inflamed joints. SKIN: No ecchymoses, petechiae, ulcers or rashes. LYMPH: No palpable lymph nodes. NEUROLOGIC: Alert, oriented. Speech clear, coherent. No focal deficits noted. PSYCHIATRIC: Appropriate affect, no apparent distress. LABORATORY STUDIES Pending. RADIOGRAPHIC STUDIES I have personally reviewed images from the following studies where available: Reviewed above IMPRESSION Ananya Tanner is a 42 y.o. woman with an episode of apparently unprovoked DVT/PE who is appropriately anticoagulated with apixaban for now. In light of the nature and severity of the VTE event, she is a candidate for considering ferry terminal agent anticoagulation. Her family history is provocative and may signal a hereditary thrombophilia. PLAN/RECOMMENDATIONS I reviewed the difference between an unprovoked VTE event and one that may have been precipitated by temporary risk factors (e.g., surgery, trauma, travel, hospitalization, immobilization) and discussed the additive nature of factors such as hereditary or acquired thrombophilia (e.g., factor V Leiden, PT [id number]), ABO blood type (non-O > O), dehydration, obesity, smoking varicose veins, diabetes, cancer, hormone use. I explained that the risk for developing a recurrent VTE is higher when theoriginal event was unprovoked than when it was associated with identifiable risk factors that have subsequently been eliminated. I explained that current [...] has completed 6 months of anticoagulation, it may be appropriate to lower the dose to 2.5 mg twice daily which is the FDA-approved dose for ferry terminal agent VTE prevention. If she does not have a severe thrombophilia, I'll consider a dose reduction when I see her next. We discussed the concept of hereditary and acquired thrombophilia and I reviewed with her that it is possible she has a hereditary pre-disposition to VTE in light of her family history. We discussed the idea that the presence or absence of one of these conditions has few, if any, implications for current or future anticoagulation recommendations but may have implications for family members. We reviewed the risks (potential for loss of privacy, insurance discrimination and heightened anxiety over results of genetic tests), benefits (potential explanation for VTE, guide for treatment, information for family members) and limitations (lack of predictive value for VTE recurrence risk) of testing, and she is interested in proceeding. Accordingly, she'll have her blood drawn today for a standardthrombophilia screening test panel, including levels of the endogenous anticoagulants, antithrombin, protein C and protein S, APC resistance/factor V Leiden, PT [id number] and antiphospholipid antibodies. LA testing will be omitted since she is on apixaban. Given the chronic swelling in the left leg, a follow up venous duplex study is reasonable to assessfor residual vein occlusion. Finally, I reviewed with Greg that there is a very real post- traumatic stress disorderthat can accompany a PE, and reassured her that this tends to hawk over time. Additionally, it cantake up to a year to recover physically from the acute event and I reassured her that she's on track. In summary: ?? Continue apixaban for the half-way with periodic review of risk/benefit. ?? Will consider decrease to 2.5 mg twice daily when I see her in follow up. ?? Thrombophilia testing today ?? Follow up venous duplex study, left leg when I see her again Ananya Tanner had the opportunity to ask questions and indicated that all her questions were answered to her satisfaction. She will follow up with me in approximately three weeks to discuss the results of the thrombosis testing, and I will finalize my recommendations at that time. In the meantime I'll try to obtain relevant records from [facility]. Ana Barnes MD [facility] documented in this encounter Plan of Treatment Not on file documented as of this encounter Results * Duplex for DVT, Leg, Unilat (12/09/2022 9:55 AM EDT) VB Text Report Department: Vascular Surgery Lab Patient: [id number] (ANANYA TANNER) CPT: 62219 Referring Physician: ANA BARNES ?? Indications: ?? [...] Ana Barnes MD VASCULAR ORDERABLE S VASCUBASE * D-Dimer, Quantitative (11/18/2022 11:09 AM EST) D-Dimer 253 0 - 500 FEU ng/ml [facility] Comment: The D-Dimer assay is used [...] Lab Ana Barnes MD HEMATOLOGY ORDERAB LES [facility] [place] [address] documented in this encounter Visit Diagnoses Diagnosis Acute deep vein thrombosis (DVT) of left lower extremity, unspecified vein Anticoagulated by anticoagulation treatment Encounter for long-term (current) use of anticoagulants Other acute pulmonary embolism, unspecified whether acute cor pulmonale present documented in this encounter Care Teams Director Sterile Processing Relationship Specialty Start Date End Date Unknown None PCP - General 08/10/10 12/08/22 documented as of this encounter
--- OUTSIDE RECORDS SUMMARY | 2024-06-17 09:59 | XMS_ITS | Continuity of Care Document ---
Author Organization [facility] Address [address] [place] [address] Care Team Providers Care Auto Motor Mechanic Name Role Phone ROBIN PRYOR MD Primary Care Physician Encounter [facility] NBR [id number] Date(s): 09/14/23 - 09/14/[address] [address]- Discharge Disposition: Home or Self Care Attending Physician: ROBIN PRYOR MD Admitting Physician: ROBIN PRYOR MD Referring Physician: ROBIN PRYOR MD Allergies, Adverse Reactions, Alerts Substance Reaction Severity Status tetracycline Moderate Active SUMAtriptan Moderate Active Medications Eliquis 5 mg oral tablet 5 mg = 1 tab, Oral, BID Start Date: 11/21/22 Status: Ordered sertraline 25 mg oral tablet 25 mg = 1 tab, Oral, Daily Start Date: 11/21/22 Status: Ordered Results Radiology Reports * Exam Date Time Procedure Performing Provider Status 09/14/23 2:45 PM US Lower Ext Venous Duplex Left Dipesh Reynolds; Hay (Verified) Notes: (US Lower Ext Venous Duplex Left) Reason For Exam: M79.662-Pain in left lower leg;M79.662-Pain in left lower leg US Lower Ext Venous Duplex Left EXAM DESCRIPTION: US Lower Ext Venous Duplex Left 09/14/2023 INDICATION: M79.662-PAIN IN LEFT LOWER LEG TECHNIQUE: Static images of real-time sonography utilizing B-mode and color Doppler with spectral waveform analysis of the left lower extremity deep venous system was performed. FINDINGS: Left common femoral vein, saphenous junction, femoral vein, visualized proximal profundus femoral vein, popliteal vein as well as visualized posterior tibial and peroneal veins demonstrate normal compressibility, color flow and augmentation with no evidence of DVT. IMPRESSION: No evidence of left lower extremity DVT. JOB #: [id number] Final Signed by: Eulalio Moffett MD Signed (Electronic Signature): 09/14/2023 2:51 pm Social History Social History Type Response Tobacco Never tobacco user T obacco Use:. Sex Female Patient Care team information Care Team Personnel Name: ROBIN PRYOR MD Position: No Access Member Role: Primary Care Physician Address: Address: [address] Care Team Related Persons Name: TRICIA MUJICA
--- OUTSIDE RECORDS SUMMARY | 2024-06-17 09:59 | XMS_ITS | Encounter Summary ---
Author Organization [facility] [place] [address] Care Team Providers Care Floral Assistant Name Role Phone Unknown Primary Care Provider Unavailabl e Encounter Details Date Type Department Care Team (Late st Contact Info) Description 06/14/2022 [place] [phone] Swapna Her MD [facility] [place] [address] Social History Tobacco Use Types Packs/Day Years Used Date Smoking Tobacco: Never Assessed Sex and Gender Information Value Date Recorded Sex Assigned at Not on file Gender Identity Not on file Sexual Orientation Not on file documented as of this encounter Miscellaneous Notes * Telephone Encounter - Swapna Her MD - 06/14/2022 2:33 PM EDT 06/14/2022 Ananya Tanner Initial Contact Date: 06/14/2022 Initial contact time: 2:33 PM Referring Provider: Berna Lombardo MD Patient Location: [facility] Past Medical History: Family history, mother & grandmother with blood clots Current use of contraception Presenting Symptoms per OSH: Recent LLE cramping progressing to chest tightness & shortness of breath over the last 2-3 days. Presented to [facility] tachypneic with an O2 sat of 79% ORA. Now 92-100% on 6L. Vitals otherwise notable for BP 119/80, HR 114. Troponin 0.09 (ULN 0.05). ProBNP normal. CT with large, bilateral partially occlusive thrombi involving the proximal left and mid right PAs with RV dilation. Possible TTE this afternoon locally. Past cardiac studies: None OSH Interventions: None to date Plan: Tenuously stable young patient (no current vasopressors), normotensive with tachycardia, tachypnea and significant O2 requirement. sPESI is 2. Troponin is elevated & there is evidence of RV dilation with central clot. [place] candidate for catheter directed lytic therapies. Am told we have no beds. Start lovenox 1 mg/kg BID, gentle IVF only if hypotension given tenuous respiratory status and concern for possible RV dysfunction. Strongly recommend catheter directed lytic therapy if possible to transfer to a capable facility, recommended [facility], [place], etc. Discuss contraindications to systemic lytics for any chance in clinical stability. Will reach out to corrosion technician medical lab specialist to see if we are able to accomodate. Above recommendations were based on my discussion with Dr. Lombardo; I have not personally interviewed or examined this patient. Advised to call the transfer center back with any changes in the patient condition. Swapna Her MD Cardiology PGY 5 06/14/2022 documented in this encounter Plan of Treatment Not on file documented as of this encounter Visit Diagnoses Not on filedocumented in this encounter Care Teams Floral Assistant Relationship Specialty Start Date End Date Unknown None PCP - General 08/10/10 12/08/22 documented as of this encounter
--- OUTSIDE RECORDS SUMMARY | 2024-06-17 09:59 | XMS_ITS | Encounter Summary ---
Author Organization [facility] [place] [address] Care Team Providers Care Irrigation District Manager Name Role Phone Unknown Primary Care Provider Unavailabl e Encounter Details Date Type Department Care Team (Late st Contact Info) Description 05/25/2022 Ancillary Procedure Radiology Library at [facility] [place] [address] Mani Newell MD [facility] [place] [address] Social History Tobacco Use Types Packs/Day Years [...] Associated Diagnosis Comments FILM LIBRARY STORAGE ONLY DX CHEST Routine 05/25/2022 12:00 AM EDT documented in this encounter Results * Film Library- Storage Only DX Chest (05/25/2022 12:00 AM EDT) Narrative [facility] - 06/14/2022 2:05 PM EDT This exam is auto-finalizing. It's purpose is for storage only. Mani Newell MD G FILM LIBRARY ORD ERABLES [place], [place] documented in this encounter Visit Diagnoses Not on filedocumented in this encounter Care Teams Irrigation District Manager Relationship Specialty Start Date End Date Unknown None PCP - General 08/10/10 12/08/22 documented as of this encounter
--- OUTSIDE RECORDS SUMMARY | 2024-06-17 09:59 | XMS_ITS | Continuity of Care Document ---
Author Organization [facility] Address [address] [place] [address] Care Team Providers Care Sausage Machine Operator Name Role Phone Page, Brianna Rodriguez Primary Care Physician Encounter [facility] NBR [id number] Date(s): 07/27/22 - 07/27/[address] [address]- [place] Discharge Disposition: Home or Self Care Attending Physician: Letha Ren APRN Admitting Physician: Letha Ren APRN Referring Physician: Letha Ren APRN Results Radiology Reports * Exam Date Time Procedure Performing Provider Status 07/27/22 8:09 AM MG Mammo Screening Bilateral [place], A nna; Auth (Verified) Notes: (MG Mammo Screening Bilateral) Reason For Exam: screening MG Mammo Screening Bilateral EXAM DESCRIPTION: MG Mammo Screening Bilateral 07/27/2022 INDICATION: SCREENING COMPARISON: 07/23/2021 and 06/05/2020 BREAST DENSITY: There are scattered areas of fibroglandular density. FINDINGS: MLO and CC views were performed with digital breast tomosynthesis. Images were reviewed using computer aided detection. No asymmetry, architectural distortion or suspicious grouping of calcifications to suggest malignancy in either breast. ASSESSMENT: No mammographic evidence of malignancy. Negative. BI-RADS category 1. RECOMMENDATION: Screening mammography in 1 year JOB #: [id number] Final Signed by: Eulalio Moffett MD Signed (Electronic Signature): 07/27/2022 8:35 am MG Breast - bilateral Screening * Eulalio Moffett MD: VERIFY, VERIFY Event Display: Report EXAM DESCRIPTION: MG Mammo Screening Bilateral 07/27/2022 INDICATION: SCREENING COMPARISON: 07/23/2021 and 06/05/2020 BREAST DENSITY: There are scattered areas of fibroglandular density. FINDINGS: MLO and CC views were performed with digital breast tomosynthesis. Images were reviewed using computer aided detection. No asymmetry, architectural distortion or suspicious grouping of calcifications to suggest malignancy in either breast. ASSESSMENT: No mammographic evidence of malignancy. Negative. BI-RADS category 1. RECOMMENDATION: Screening mammography in 1 year JOB #: [id number] Final Signed by: Eulalio Moffett MD Signed (Electronic Signature): 07/27/2022 8:35 am Patient Care team information Care Team Personnel Name: Blake Matute APRN Position: Physician Member Role: Nurse Practitioner Address: Address: [address] [place] [address]- Name: Brianna Ferguson Position: No Access Member Role: Primary Care Physician Address: Address: [address] [place] [address]- Care Team Related Persons Name: TRICIA MUJICA
== END 2024-06-17 10:16 ==
LOC: DI 09:57
PROVIDERS: Visit Provider Obstetrics & Gynecology
DX: Z12.31 Encounter for screening mammogram for malignant neoplasm of breast (principal); N63.11 Unspecified lump in the right breast, upper outer quadrant
CPT/HCPCS: 76642; 77063; 77067

== ENCOUNTER 2025-06-18 03:29 | Outpatient (CLI) | payer BC, SELFPAY ==
--- NOTE | 2025-06-18 08:10 | DI.MAMMO_ITS ---
Exam(s) MAMMO SCREENING EXAM: MAMMO SCREENING CLINICAL HISTORY: screening TECHNIQUE: Mammograms were interpreted according to the usual protocol including computer analysis with CAD system, tomosynthesis and C-view imaging. COMPARISON: 2019 through 2023 FINDINGS: The breasts are composed of scattered fibroglandular densities, Breast Density category B. No suspicious masses or suspicious microcalcifications are seen. No skin thickening or abnormal axillary lymph nodes are seen. There has been no significant change from prior exams. IMPRESSION: BI-RADS Category 1, Negative mammogram Yearly screening mammography is recommended. Breast Density - Category B - There are scattered areas of fibroglandular density. Breast density Category C or D implies that the patient has dense breast tissue. Dense breast tissue can make it harder to find cancer on a mammogram. Dense breast tissue is also associated with an increased risk of breast cancer. This information about the result of the mammogram report was provided to the patient to raise their awareness. Use this report when you speak with the patient about their risks for breast cancer, which includes their family history. At that time, you may recommend additional screening tests (Ultrasound or MRI) as these tests may add significant information. A negative radiographic report should not delay biopsy if a dominant or clinically suspicious mass is present. Up to ten percent of cancers are not identified on mammography. A negative report may reinforce clinical impression. Adenosis and dense breasts may obscure an underlying neoplasm. False positive reports average 6 to 10%. Patient will receive a letter notifying them of these results.
== END 2025-06-18 03:49 ==
LOC: DI 03:29
PROVIDERS: PCP Nurse Practitioner Family; Visit Provider Obstetrics & Gynecology
DX: Z12.31 Encounter for screening mammogram for malignant neoplasm of breast (principal); R92.323 Mammographic fibroglandular density, bilateral breasts
CPT/HCPCS: 77063; 77067